=== PATIENT | male | born 1985 | race Caucasian/White ===

== ENCOUNTER 2025-03-25 13:17 | Observation (INO) ==
[2025-03-25 13:58] LABS: Hematocrit (blood only) 43.8 % (42.0-52.0); Hemoglobin 15.5 g/dL (14.0-18.0); Immature Granulocytes # (auto) 0.01 K/uL (0.01-0.20); Immature Granulocytes % (auto) 0.1 %; Mean Corpuscular Hemoglobin 30.9 pg (25.0-34.0); Mean Corpuscular Volume 87.3 fL (80.0-100.0); Platelet Count 181 K/uL (130-400); RDW Standard Deviation 40.0 fL (36.4-46.3); Red Blood Count 5.02 M/uL (4.70-6.10); White Blood Count 6.78 K/ul (4.8-10.8)
--- NOTE | 2025-03-25 14:01 | Emergency Department Note ---
Impression & Plan Midsternal chest pain, Elevated troponin ED Provider Note CHIEF COMPLAINT: Episode of chest pain x 1 week HISTORY OF PRESENT ILLNESS: Patient is a 40-year-old male who presents to the emergency department accompanied by his significant other for evaluation of chest pain. Is been having episodes for about a week. He states he gets a sharp, stabbing midsternal chest pain with associated sweats and dizziness. They last between 3-5 minutes, then go away. He typically has to sit down, tries to take deep breaths, and the symptoms eventually pass. Occasionally the pain will radiate towards the left shoulder and arm, and he sometimes will get some numbness and tingling in the left arm. He reports increasing frequency and episodes in the last 24 hours. He had an episode happened at work after he had just gone up and down several flights of stairs. He had episodes that woke him up from sleep overnight, the last episode he had he was just standing in his kitchen doing nothing around 11:00 today, which was 3 hours ago. He also notes today that his smart watch woke him from sleep at 1030, because "his heart rate was in the 40s for greater than 10 minutes." T REVIEW OF SYSTEMS: Review of systems as per HPI. All other systems reviewed were negative. 10 systems reviewed. PMH: External medical records are reviewed and summarized as above/below. See Problem List. The patient is healthy; there is no significant medical or surgical history. SOCIAL HISTORY: Patient lives at home with family. 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 Smokes 1/2 pack of cigarettes per day. Denies alcohol. PHYSICAL EXAM: Vital Signs: Reviewed Nurse's notes. CONSTITUTIONAL: Well-appearing 40-year-old male who is awake and alert and in no acute distress. EYES: Pupils equal, round, reactive to light and accommodation. EOMs intact without nystagmus. Sclera are anicteric. ENT: Tympanic membranes intact, with normal landmarks. External canals are clear. Oral and nasopharynx are clear. Mucous membranes are moist, no lesions, tongue and gums appear normal. CARDIOVASCULAR: Regular rate and rhythm, with normal S1 and S2, no murmur or gallop or rub is heard. No carotid bruits auscultated. No JVD. Peripheral pulses easy to palpable. RESPIRATORY: Breath sounds equal and clear to auscultation without wheezes, rales, or rhonchi heard. Full and equal chest expansion without accessory muscle use or retractions. GI: Bowel sounds are present. Abdomen is soft, nontender, nondistended. No organomegaly. No pulsatile masses. No guarding or rebound. MUSCULOSKELETAL: Full range of motion of extremities x 4 with good strength. No cyanosis, edema, joint tenderness or swelling. No deformity. INTEGUMENTARY: No lesions or rash, normal skin turgor. EMERGENCY DEPARTMENT COURSE: The patient was seen and assessed as above. External medical records are reviewed. He presents to the emergency department for evaluation of midsternal chest pain. He has been having episodes for the last week, but more frequently in the last 24 hours. His last episode was at 11:00 today, about 2 hours prior to arrival in the emergency department. EKG, chest x-ray and laboratory studies were collected. Diagnostics, as interpreted by me: Laboratory studies: White count normal 6700, H&H 15 and 43, platelet count 181,000. Renal functions are normal. No electrolyte imbalance, no transaminitis. Initial troponin 13.3, repeat 2-hour troponin elevated at 24.1. Lab had inadvertently drawn a troponin 1 hour after the first, this was 18.8. ECG: Sinus bradycardia, 54 bpm, no acute ischemic changes. No old EKGs for comparison. Cardiac monitoring: An order was placed for continuous cardiac monitoring. The monitor shows a NSR at a rate of 70 per my interpretation. Imaging studies: Chest x-ray clear, no effusion or pneumothorax. No infiltrate. Case reviewed with attending physician, Dr. Paz. All laboratory and diagnostic imaging studies were reviewed with the patient and his significant other. He does endorse that he has had additional episodes of chest pain while in the ED. Given the elevated troponin, I do think that further inpatient care is warranted. He was given aspirin PO. Patient was reviewed with the ED case hardener, and consultation placed with the [facility] hospitalist service. Patient discussed with Dr. Scanlon. Chronic conditions affecting care: Tobacco abuse, family history of heart disease Differential diagnosis: acute myocardial infarction, acute coronary syndrome, myocarditis, pericarditis, pulmonary embolism, pneumonia, pneumothorax, cardiomyopathy, congestive heart failure, anemia , COPD/asthma exacerbation, musculoskeletal, anxiety, costochondritis,. Past Med/Surg History Problem List (Updated 03/25/25 @ 16:55 by Salas Kumar) Elevated troponin (Acute) Midsternal chest pain (Acute) Medical History Chronic left hip pain Low testosterone Surgical History No significant past surgical history Family History Mother Myocardial infarction Father Hip dysplasia Hypertension Alzheimer disease Uncle Diabetes Grandfather (Paternal) Alzheimer disease Denies family history of Ovarian cancer Prostate cancer Breast cancer Colorectal cancer Social History Smoking Status: Current every day smoker Tobacco Type: Cigarettes Age Started Using Tobacco: 18; packs per day: 0.5; Do You Dip or Chew Tobacco: No; Hx Alcohol Use: No Hx Substance Use: No Preferred Language: Frisian marital status: Life Partner Current Living Situation: Significant Other current occupational status: employed 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 Safe at Home: Yes Childhood Exposure to Second-Hand Smoke: Yes Dental Care, Regularly: Yes Physical Activity Frequency: 3-4 Times per Week Seatbelt Use: always Sunscreen Use: Yes Allergies Allergies Allergy/AdvReac Type Severity Reaction Status Date / Time No Known Allergies Allergy Verified 06/17/24 14:45 Home Meds Home Medications Medication Instructions Recorded Confirmed multivitamin 1 tab PO DAILY 05/27/24 06/17/24 Previous Rx's Medication Instructions Recorded prednisone 10 mg tablet See Rx Instructions PO DAILY #30 06/17/24 tabs Results & Data (ED) Vital Signs Vital Signs - 24 hr 03/25/25 13:21 03/25/25 13:34 03/25/25 15:14 Temperature 36.8 C Temperature Source Oral Pulse Rate 70 60 Pulse Rate from SpO2 Sensor Respiratory Rate 18 Respiratory Effort / Characteristics Non-Labored Spontaneous Respiratory Depth Normal Respiratory Pattern Regular Blood Pressure 153/90 H 140/73 Blood Pressure Mean 111 92 Blood Pressure Position Sitting Pulse Oximetry 98 Oxygen Delivery Method Room Air Sepsis Recent Fever Within 48 Hours No Sepsis New/Unexplained Change in Mental Status No Sepsis Action Taken by Nursing No Action Required 03/25/25 15:14 03/25/25 15:14 03/25/25 15:14 Temperature Temperature Source Pulse Rate Pulse Rate from SpO2 Sensor Respiratory Rate Respiratory Effort / Characteristics Respiratory Depth Respiratory Pattern Blood Pressure 140/73 140/73 140/73 Blood Pressure Mean 92 92 92 Blood Pressure Position Pulse Oximetry Oxygen Delivery Method Sepsis Recent Fever Within 48 Hours Sepsis New/Unexplained Change in Mental Status Sepsis Action Taken by Nursing 03/25/25 15:21 Temperature Temperature Source Pulse Rate 99 H Pulse Rate from SpO2 Sensor 85 Respiratory Rate 13 Respiratory Effort / Characteristics Respiratory Depth Respiratory Pattern Blood Pressure 140/73 Blood Pressure Mean 95 Blood Pressure Position Pulse Oximetry 99 Oxygen Delivery Method Sepsis Recent Fever Within 48 Hours Sepsis New/Unexplained Change in Mental Status Sepsis Action Taken by [facility] Medications Current Medication List: was personally reviewed by me Laboratory Data Attestation: I reviewed the patient's lab results. 03/25/25 13:40 03/25/25 13:40 Lab Results 03/25/25 03/25/25 03/25/25 Range/Units 13:40 14:43 15:45 WBC 6.78 (4.8-10.8) K/ul RBC 5.02 (4.70-6.10) M/uL Hgb 15.5 (14.0-18.0) g/dL Hct 43.8 (42.0-52.0) % MCV 87.3 (80.0-100.0) fL MCH 30.9 (25.0-34.0) pg MCHC 35.4 (32.0-36.0) g/dL RDW Std Deviation 40.0 (36.4-46.3) fL RDW Coeff of Beth 12.7 (11.5-14.5) % Plt Count 181 (130-400) K/uL MPV 9.6 (9.4-12.4) fL Immature Gran % (Auto) 0.1 % Neut % (Auto) 43.5 % Lymph % (Auto) 43.8 % [place] % (Auto) 7.4 % Eos % (Auto) 4.3 % Baso % (Auto) 0.9 % Neut # (Auto) 2.95 (1.40-6.50) K/uL Lymph # (Auto) 2.97 (1.20-3.40) K/uL [place] # (Auto) 0.50 (0.11-0.59) K/uL Eos # (Auto) 0.29 (0.00-0.50) K/uL Baso # (Auto) 0.06 (0.00-0.20) K/uL Immature Gran # (Auto) 0.01 (0.01-0.20) K/uL Sodium 138 (136-145) mmol/L Potassium 4.0 (3.5-5.1) mmol/L Chloride 103 (98-107) mmol/L Carbon Dioxide 28 (21-32) mmol/L Anion Gap 7 (3-11) BUN 18 (6-23) mg/dl Creatinine 1.24 (0.6-1.4) mg/dl Est Cr Clr Drug Dosing 104.0 ml/min eGFR 76.32 BUN/Creatinine Ratio 14.5 (10-20) Glucose 134 H (70-99(Fasting)) mg/dl Calcium 8.9 (8.6-10.3) mg/dl Total Bilirubin 0.4 (0.2-1.0) mg/dl AST 20 (13-39) U/L ALT 19 (7-52) U/L Alkaline Phosphatase 65 (34-104) U/L Troponin I High Sens 13.3 18.8 D 24.1 H (0-20) pg/ml Total Protein 6.9 (6.0-8.3) gm/dl Albumin 4.3 (3.4-5.0) gm/dl Globulin 2.6 (2.5-4.0) gm/dl Albumin/Globulin Ratio 1.7 (0.9-2) Administered Medications Discontinued Medications Aspirin (Aspirin 81 Mg Chew) 324 mg PO NOW STA Stop: 03/25/25 16:42 Last Admin: 03/25/25 16:52 Dose: 324 mg Documented By: [facility] Imaging Data Attestation: I personally reviewed and interpreted this imaging study as follows: Radiologist's Impression: Chest X-Ray 03/25/25 13:34 Clinical History: Chest pain Technique: A frontal view of the chest was obtained Findings: There are no confluent pulmonary infiltrates. The heart size is within normal limits. No pleural effusion or pneumothorax is seen. There is no definite pulmonary nodule. No fracture is noted. No foreign body is seen Impression: No active disease Electronically signed by Olayinka Pratt 03-25-2025 2:59 PM Discharge Plan Visit Data Chief Complaint: Cardiac Assessment Stated Complaint: CHEST PAIN, DIZZINESS, SWEATING ED Provider: Foreign Paz ED Midlevel Provider: Salas Kumar Discharge Problem: Midsternal chest pain, Elevated troponin Patient Disposition: Being Evaluated by Hospitalist Condition: Fair Forms Stand Alone Forms: My [facility] Prescriptions Prescriptions: No Action prednisone 10 mg tablet See Rx Instructions PO DAILY Qty: 30 0RF Rx Instructions: Take 4 tabs daily x 3 days, then take 3 tabs daily x 3 days, then take 2 tabs daily x 3 days, then take 1 tab daily x 3 days multivitamin Tablet 1 tab PO DAILY Referrals Referrals: Gladys Matthews CRNP [Primary Care Provider] -
[2025-03-25 14:20] LABS: Alanine Aminotransferase 19.0 U/L (7-52); Albumin Globulin Ratio 1.7 (0.9-2); Albumin Level 4.3 gm/dl (3.4-5.0); Alkaline Phosphatase 65.0 U/L (34-104); Anion Gap 7.0 (3-11); Bilirubin,Total 0.4 mg/dl (0.2-1.0); Blood Urea Nitrogen 18.0 mg/dl (6-23); Calcium 8.9 mg/dl (8.6-10.3); Carbon Dioxide 28.0 mmol/L (21-32); Chloride 103.0 mmol/L (98-107); Creatinine Clr Calc Pharmacy 104.0 ml/min; Globulin 2.6 gm/dl (2.5-4.0); Glucose 134.0 mg/dl (70-99(Fasting)); Potassium 4.0 mmol/L (3.5-5.1); Sodium 138.0 mmol/L (136-145); Total Protein 6.9 gm/dl (6.0-8.3)
--- NOTE | 2025-03-25 15:04 | XRay Report ---
Clinical History: Chest pain Technique: A frontal view of the chest was obtained Findings: There are no confluent pulmonary infiltrates. The heart size is within normal limits. No pleural effusion or pneumothorax is seen. There is no definite pulmonary nodule. No fracture is noted. No foreign body is seen Impression: No active disease Electronically signed by Olayinka Pratt 03-25-2025 2:59 PM
[2025-03-25] MEDS: ASPIRIN 81 MG CHEW PO STA (16:52)
[2025-03-25] MEDS: MAGNESIUM SULFATE / D5W 1 GM/100 ML BAG IV SCH ×2 (17:15→17:53)
[2025-03-25] MEDS ORDERED: POLYETHYLENE (MIRALAX) 17 GM PACK PO PRN (17:46)
[2025-03-25] MEDS ORDERED: MoRPHine SULFATE 2 MG/ML CARP IV PRN (17:46)
[2025-03-25] MEDS ORDERED: ACETAMINOPHEN 325 MG TAB PO PRN (17:46)
[2025-03-25] MEDS ORDERED: NITROGLYCERIN SL 0.4 MG/TAB TAB SL PRN (17:46)
[2025-03-25] MEDS ORDERED: ONDANSETRON INJ 2 MG/ML 2 ML VIAL IV PRN (17:46)
[2025-03-25] MEDS ORDERED: MELATONIN 3 MG TAB PO PRN (17:51)
--- NOTE | 2025-03-25 18:06 | History & Physical Report ---
Date of Service March 25, 2025 Assessment & Plan (1) Midsternal chest pain: (2) Elevated troponin: (3) Bradycardia with 41-50 beats per minute: (4) Cigarette smoker one half pack a day or less: Plan Kendrick is a 40yo male with no current medical history but had anxiety with panic attacks and morbid obesity earlier in life, came to the ED for concern about increasing frequency and duration of sharp midsternal chest pain, being admitted for cardiac assessment and workup of undifferentiated chest pain. Episodes include sharp 10/10 non-radiating mid-lower sternal pain, non- exertional, and with no apparent provocation, becoming more frequent and lasting longer since they first started about a month ago. Typical symptoms include midsternal location w/ dizziness and diaphoresis, however atypical symptoms include sharp pain rather than pressure/tightness that it is unrelated to activity. Considering unstable angina as most likely dx. Requires admission for continuous cardiac monitoring and and medical stabilization. #midsternal chest pain #?unstable angina vs atypical chest pain No hx CAD or AL, nor prior chest pain like this before the episodes first started about a month ago; maternal hx of CAD at 52 with AL cxr negative for acute process, no reproducible tenderness to palpation of entire chest wall initial EKG showing sinus bradycardia to 54; second EKG in ED showing sinus rhythm at 75bmp with frequent PVCs and PACs - did not come to ED with chest pain, however in ED pt did have a run of what appeared to be VTach with concomitant anxiety and some dizziness Given aspirin 324mg; shortly after run of VT pt was given 1g mag sulfate x2 Trop elevated only in 20s but slight uptrend obtaining q6h troponin, trend to peak starting anticoagulation with heparin drip for suspected unstable angina nitroglycerin SL and ointment ordered, prn for chest pain morphine 2mg IV additionally prn for pain continue aspirin 81mg daily Protonix 40mg daily ordered for possibility of acid reflux as a cause of non- cardiac chest pain Cardiology consulted, appreciate recs and interventions Lipid panel within normal limits, LDL 75 in Apr 2024; consider obtaining new lipid panel but unlikely to have worsened to a significant degree in 10-11mos based on reportedly rather healthy diet with daily exercise on the job #frequent PVCs - pt does endorse typically 2 monster energy drink cans per day; denies other significant caffeine - also notes his sleep is rather poor as 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 His partner heard a thump, saw pt on the bathroom floor as he had fallen. Notes he was disoriented for 1-2min before being fully with it again, pt didn't know he had fallen or was about to fall. - would benefit from EEG outpatient if unable to obtain while in hospital #cigarette smoking, 15-20pky hx currently 1/2 pack per day, previously a full pack. Started at [age] further engage willingness to cut back or quit, discuss patches vs gum vs other methods chronic stable: #opioid use disorder, remission continue subutex 8mg SL daily VTE ppx: heparin drip dispo: pcu tele History of Present Illness Chief Complaint: chest pain increasing freq and duration Primary Care Provider: IRVING Earl Kendrick is a 40yo male with no current medical history but had anxiety with panic attacks and morbid obesity earlier in life, concerned about increasing frequency and duration of midsternal chest pain. States that since just 1 month ago, with no obvious triggers, he started having sharp up to 10/10 pain in the center of his chest, without radiation, with no apparent provocation. Initially they lasted 30-40 seconds and occurred 1-2x daily, now they are occurring 4-5x daily, more frequently at night, including waking him up from sleep. States he gets dizzy and sweaty, occasionally pins and needles sensation of left hand. Additionally notes his smart watch has alerted him about heart rate in the 40s overnight on a few occasions. Denies any obvious exertional, positional, or dietary triggers to the pain. Denies any personal history of CAD or AL, nor prior chest pain like this before the episodes first started about a month ago. Also mentions one instance a few months ago he got up to urinate in the middle of the night, and before he knew it he was on the ground. His partner heard a thump, saw pt on the bathroom floor as he had fallen. Notes he was disoriented for 1-2min before being fully with it again. - pt notes his sister has hx of epilepsy since childhood, but denies any personal hx of seizures in his life. 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, typically walks upwards of 5-10mi per daily on the job FamHx: mom had CAD at 52yo; sister hx epilepsy ED course: 1g mag sulfate x2 IV, aspirin 324mg PO Allergies Allergy/AdvReac Type Severity Reaction Status Date / Time No Known Allergies Allergy Verified 06/17/24 14:45 Home Medications Medication Instructions Recorded Confirmed Type buprenorphine HCl 8 mg sublingual 8 mg sublingual DAILY 03/25/25 03/25/25 History tablet Past Med/Surg History Problem List (Updated 03/25/25 @ 20:12 by Yury Duong DO) Cigarette smoker one half pack a day or less Bradycardia with 41-50 beats per minute Elevated troponin (Acute) Midsternal chest pain (Acute) Medical History Chronic left hip pain Low testosterone Surgical History No significant past surgical history Family History Mother Myocardial infarction Father Hip dysplasia Hypertension Alzheimer disease Uncle Diabetes Grandfather (Paternal) Alzheimer disease Denies family history of Ovarian cancer Prostate cancer Breast cancer Colorectal cancer Social History Smoking Status: Current every day smoker Tobacco Type: Cigarettes Age Started Using Tobacco: 18; packs per day: 0.5; Do You Dip or Chew Tobacco: No; Hx Alcohol Use: No Hx Substance Use: No Preferred Language: American marital status: Life Partner Current Living Situation: Significant Other current occupational status: employed 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 Feels Safe at Home: Yes Childhood Exposure to Second-Hand Smoke: Yes Dental Care, Regularly: Yes Physical Activity Frequency: 3-4 Times per Week Seatbelt Use: always Sunscreen Use: Yes Physical Exam Physical Exam: Gen: appearing in mild distress, A&Ox3 CV: RRR, no m/r/g Resp: clear to auscultation b/l, no w/r/R GI/Abd: +BS, no organomegaly, abdomen nontender to palpation MSK: anterior and posterior chest wall nontender to palpation, no ecchymosis or gross deformities Neuro: 5/5 strength and symmetric movement of b/l UE and LE, no facial droop, speech intact, no focal deficits Skin: R lateral chest wall <1cm erythematous lesion with dark central scabbing (known tick bite, removed within the past week) Results & Data Results & Data Vital Signs (Past 12 Hours) Vital Signs Temp Pulse Resp BP Pulse Ox O2 Del Method 03/25/25 15:21 99 H 13 140/73 99 03/25/25 15:14 140/73 03/25/25 15:14 140/73 03/25/25 15:14 140/73 03/25/25 15:14 140/73 03/25/25 13:34 60 03/25/25 13:21 36.8 C 70 18 153/90 H 98 Room Air Code Status & VTE Plan VTE Prophylaxis Plan VTE Prophylaxis will be ordered: Yes Reason for no VTE drug order: Treatment not indicated Resident Activity Tracking Resident Involvement: Resident Care Provided Care Provided: Adult Hospital Medicine
[2025-03-25] MEDS: NITROGLYCERIN 2% OINTMENT 30GM TUBE EXT SCH (18:47)
[2025-03-25] MEDS: HEPARIN 25000 UNIT/500 ML D5W 25,000 UNITS/500 ML BAG IV SCH (21:26)
[2025-03-25] MEDS: Heparin IV Adult Wt-Based Standard *NO* INITIAL Bolus Protocol IV STA (21:31)
[2025-03-25 22:03] VITALS: O2SAT 97
[2025-03-25 22:14] LABS: INR 1.0 (0.9-1.1); Partial Thromboplastin Time 27 Seconds (21-31); Prothrombin Time 10.9 Seconds (9.0-12.0)
[2025-03-26 04:02] LABS: Anion Gap 5.0 (3-11); Blood Urea Nitrogen 16.0 mg/dl (6-23); Calcium 8.8 mg/dl (8.6-10.3); Carbon Dioxide 30.0 mmol/L (21-32); Chloride 104.0 mmol/L (98-107); Creatinine Clr Calc Pharmacy 106.3 ml/min; Glucose 111.0 mg/dl (70-99(Fasting)); Magnesium 2.5 mg/dl (1.7-2.4); Potassium 4.6 mmol/L (3.5-5.1); Sodium 139.0 mmol/L (136-145)
[2025-03-26 04:20] LABS: ANTI-Xa, UFH(UnfractionatedHep 0.36 IU/ml (0.3-0.7)
[2025-03-26] MEDS: ASPIRIN 81 MG ECTAB PO SCH (08:46)
--- NOTE | 2025-03-26 10:20 | XCELERA ---
[id number]
--- NOTE | 2025-03-26 10:36 | Cardiology Consultation ---
Date of Consultation March 26, 2025 Assessment & Plan (1) Midsternal chest pain: (2) SVT (supraventricular tachycardia): (3) Bradycardia with 41-50 beats per minute: (4) Syncope: Plan 1. Chest pain: Atypical in that this occurs at rest, it is described as sharp and is quite transient and nature. This seems unlikely to be an acute coronary syndrome. I suppose it is possible that this could represent some form of coronary vasospasm, but the association with his SVT in the emergency room makes this the most likely etiology his tachycardia. 2. SVT: While he does have some episodes of a wide-complex tachycardia, this generally occurs after development of a well-documented SVT. There is some aberrancy with the SVT, typical right bundle branch block. He did have reproduction of his typical chest pain symptoms with development of the SVT. No evidence of preexcitation on his baseline EKG. No history of arrhythmia in the past. Curiously, no recordings of high heart rates on his heart rate monitor at home. 3. Wide-complex tachycardia: While we only have a single-lead EKG in the emergency room, there does appear to be some brief episodes of VT, generally in association with SVT. Structurally normal heart. No history of coronary disease. Only does take buprenorphine, QTc on his EKG is normal and this particular formulation is not generally associated with cardiac arrhythmias. 4. PVCs: At times he has a bigeminal rhythm. Most noticeable when he has his usual sinus bradycardia. Overall burden appears normal. Morphology not suggestive of an outflow tract PVC. This likely accounts for some episodes of "bradycardia" 5. Sinus bradycardia: He has a baseline sinus bradycardia. Unclear duration. He states that has been told on many occasions that he has a slow heartbeat. I don't think this is playing a significant role in his current symptoms or symptoms of any kind however it may limit our ability to treat SVT as high-dose beta-blockade may be relatively contraindicated 6. Syncope: Remote history of syncope. Episode concerning for arrhythmia especially in light of his recent findings. My recommendation was to perform exercise testing both to evaluate symptoms, exclude ischemia and monitor for arrhythmia. However, the patient chose to leave the hospital and return for outpatient evaluation. History of Present Illness Reason for Consultation: Chest pain, arrhythmia Requesting Physician: Ghislaine Attending Physician: Rafael Scanlon History of Present Illness The patient is a 40-year-old gentleman without a known history of cardiac disease who presented to the hospital for symptoms of chest discomfort. The patient states that over the past week he has been having paroxysms of chest pain that he described as "sharp" and severe in nature. They occur in the precordium and happen randomly. In fact, the most common situation appears to be at nighttime while he is sleeping. He reports being awoken by the symptoms. He generally gets out of bed, rests or drinks a glass of water and the symptoms resolved. He believes they generally last between 30 seconds and 2 minutes in duration. He is unable to go back to sleep without interruption. He has been having more frequent episodes recently. Some of these episodes happen with activity. Not reliably reproduced by any specific activity. Perhaps some associated dizziness but no presyncope or syncope. Some diaphoresis as well. Patient states that prior to last week he was not having symptoms of this nature at all. He did report 1 episode of syncope which occurred several months ago. He recalls getting up to go to the bathroom and falling on the floor. He did not recall the circumstances leading up to that event or any symptoms associated with the syncope. No injury and no recurrence. He cannot recall having a similar episode in the past. He does have a watch that monitors his heart rate. This has been giving him alarms at nighttime recently that his heart rate is consistently below 40 bpm. This does not appear to happen during the day. He is not gotten these reports prior to the last few weeks. Curiously, no reports of high heart rates. No warnings about atrial fibrillation. Patient states that he is always had a "slow heartbeat". In general he is an active individual. He has a physically demanding job but is able to perform his usual duties without symptom. He specifically denied any chest pain, shortness of breath or dizziness associated with activity. He does have some hip dysplasia in his hip pain is noticeable with activity at times. Yesterday while being evaluated in the emergency room he did have recurrence of his typical chest pain symptoms. This appeared to be associated with a rapid heart rate. He stated that the episode was identical to prior but shorter in duration. Allergies Allergy/AdvReac Type Severity Reaction Status Date / Time No Known Allergies Allergy Verified 03/27/25 09:46 Home Medications Medication Instructions Recorded Confirmed Type buprenorphine HCl 8 mg sublingual 8 mg sublingual DAILY 03/25/25 03/28/25 History tablet Patient History Medical History Chronic left hip pain Low testosterone Surgical History No significant past surgical history Family History Mother Myocardial infarction Father Hip dysplasia Hypertension Alzheimer disease Uncle Diabetes Grandfather (Paternal) Alzheimer disease Denies family history of Ovarian cancer Prostate cancer Breast cancer Colorectal cancer Social History Smoking Status: Former smoker Tobacco Type: Cigarettes Age Started Using Tobacco: 18; Age Quit Using Tobacco: 40; packs per day: 0.5; Hx Alcohol Use: No Hx Substance Use: No Preferred Language: Sammarinese Communication Ability: Effective Psychiatric Secretary Required: No Beliefs That Will Affect Care: None marital status: Life Partner Current Living Situation: Spouse current occupational status: employed 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 Physical Exam Physical Exam: The patient is alert and oriented. Mood and affect appeared normal. He answered all questions appropriately. HEENT: Pupils are equal and reactive to light and accommodation. Extraocular movements are intact. The sclerae are anicteric. Neuro: Cranial nerves intact Lungs: Clear to auscultation bilaterally. He has good air movement without use of accessory muscles. No rales wheezes or rhonchi. Cardiac: Heart demonstrates a regular rate and rhythm. Normal S1 and S2. No murmurs on examination. Pulses: The patient has palpable radial pulses bilaterally that are equal in intensity Extremities: There was no evidence of hypoperfusion. There is no cyanosis or clubbing. There is no edema. Skin: I did not appreciate any rashes on examination today. Results & Data Vital Signs (Past 12 Hours) Vital Signs Temp Pulse Pulse Resp BP Pulse Ox O2 Del Method 03/26/25 07:48 42 L 03/26/25 07:10 36.8 C 53 L 20 133/73 97 Room Air 03/26/25 03:22 36.6 C 52 L 18 129/68 97 Room Air Laboratory Results Abnormal Lab Results 03/25/25 03/25/25 03/25/25 13:40 14:43 15:45 WBC 6.78 RBC 5.02 Hgb 15.5 Hct 43.8 MCV 87.3 MCH 30.9 MCHC 35.4 RDW Std Deviation 40.0 RDW Coeff of Beth 12.7 Plt Count 181 MPV 9.6 Immature Gran % (Auto) 0.1 Neut % (Auto) 43.5 Lymph % (Auto) 43.8 Luce % (Auto) 7.4 Eos % (Auto) 4.3 Baso % (Auto) 0.9 Neut # (Auto) 2.95 Lymph # (Auto) 2.97 Luce # (Auto) 0.50 Eos # (Auto) 0.29 Baso # (Auto) 0.06 Immature Gran # (Auto) 0.01 PT INR APTT PTT Ratio Heparin Anti-Xa, Unfract Sodium 138 Potassium 4.0 Chloride 103 Carbon Dioxide 28 Anion Gap 7 BUN 18 Creatinine 1.24 Est Cr Clr Drug Dosing 104.0 eGFR 76.32 BUN/Creatinine Ratio 14.5 Glucose 134 H Calcium 8.9 Magnesium Total Bilirubin 0.4 AST 20 ALT 19 Alkaline Phosphatase 65 Troponin I High Sens 13.3 18.8 D 24.1 H Total Protein 6.9 Albumin 4.3 Globulin 2.6 Albumin/Globulin Ratio 1.7 03/25/25 03/25/25 03/26/25 20:28 21:23 03:23 WBC RBC Hgb Hct MCV MCH MCHC RDW Std Deviation RDW Coeff of Beth Plt Count MPV Immature Gran % (Auto) Neut % (Auto) Lymph % (Auto) Luce % (Auto) Eos % (Auto) Baso % (Auto) Neut # (Auto) Lymph # (Auto) Luce # (Auto) Eos # (Auto) Baso # (Auto) Immature Gran # (Auto) PT 10.9 INR 1.0 APTT 27 PTT Ratio 1.0 Heparin Anti-Xa, Unfract 0.36 Sodium 139 Potassium 4.6 Chloride 104 Carbon Dioxide 30 Anion Gap 5 BUN 16 Creatinine 1.21 Est Cr Clr Drug Dosing 106.3 eGFR 78.60 BUN/Creatinine Ratio 13.2 Glucose 111 H Calcium 8.8 Magnesium 2.5 H Total Bilirubin AST ALT Alkaline Phosphatase Troponin I High Sens 21.5 H Total Protein Albumin Globulin Albumin/Globulin Ratio Diagnostic Findings Echocardiogram 03/26/2025: Normal LV systolic function with ejection fraction of 60 to 65%. No regional wall abnormalities. No valvular heart disease. Chest x-ray obtained at the time of admission to reveal any acute cardiopulmonary disease. PG Care Time/CCT Total # of Minutes Spent Total Time Spent with Patient: Total time spent is greater than 50% in coordination of care (as documented) at patient's floor/unit and/or counseling patient: Coding Level of Care Code 63031 IN/OBS CONSULT LVL 4,60M Diagnoses Midsternal chest pain R07.89 SVT (supraventricular tachycardia) I47.10 Bradycardia with 41-50 beats per minute R00.1 Syncope R55
[2025-03-26 10:58] VITALS: TEMP 98.1
--- NOTE | 2025-03-26 12:07 | Electrocardiogram Report ---
Test Reason : Blood Pressure : */* mmHG Vent. Rate : 54 BPM Atrial Rate : 54 BPM P-R Int : 168 ms QRS Dur : 94 ms QT Int : 408 ms P-R-T Axes : 58 62 67 degrees QTcB Int : 386 ms Sinus bradycardia Otherwise normal ECG No previous ECGs available Confirmed by Darren Meza ([id number]) on 03/26/2025 12:07:32 PM Referred By: REFERRED SELF Confirmed By: Darren Meza
--- NOTE | 2025-03-26 12:09 | Electrocardiogram Report ---
Test Reason : Blood Pressure : */* mmHG Vent. Rate : 75 BPM Atrial Rate : 67 BPM P-R Int : 150 ms QRS Dur : 92 ms QT Int : 388 ms P-R-T Axes : 37 43 60 degrees QTcB Int : 433 ms Sinus rhythm with frequent Premature ventricular complexes and Premature atrial complexes Nonspecific ST abnormality Abnormal ECG When compared with ECG of 25-Mar-2025 13:29, (unconfirmed) Premature ventricular complexes are now Present Premature atrial complexes are now Present Confirmed by Darren Meza ([id number]) on 03/26/2025 12:09:07 PM Referred By: REFERRED SELF Confirmed By: Darren Meza
[2025-03-26 15:09] VITALS: BP 147/80; RESP 19
[2025-03-26 15:31] VITALS: PULSE 51
== END 2025-03-26 15:30 | disposition left against medical advice (07) ==
LOC: 4W 13:17 → ED 13:17 → 4W 20:50

== ENCOUNTER 2025-03-28 10:42 | Inpatient (IN) ==
--- NOTE | 2025-03-28 11:00 | Emergency Department Note ---
ED Provider Note History of Present Illness Chief Complaint: Chest Pain Stated Complaint: CHEST PAIN, DIZZY Time Seen by Provider: 03/28/25 10:50 Source: patient Mode of arrival: ambulatory Limitations: no limitations Patient is a 40-year-old male who presents to the emergency department with complaints of chest pain. Patient states that he has been having intermittent chest pain that last approximately 1 to 4 minutes. Patient notes that this has been ongoing for several days and he was recently admitted to the hospital on Thursday, leaving the hospital AMA on Thursday. Patient states that he is having worsening episodes of chest pain today and noting that he is dizzy and short of breath. Home Medications Medication Instructions Recorded Confirmed Type buprenorphine HCl 8 mg sublingual 8 mg sublingual DAILY 03/25/25 03/28/25 History tablet aspirin 81 mg tablet,delayed 81 mg PO QAM 30 days #30 tabs 03/30/25 Rx release atorvastatin 40 mg tablet 80 mg (2 x 40 mg) PO QAM 30 days 03/30/25 Rx #60 tabs prasugrel HCl 10 mg tablet 10 mg PO QAM 30 days #30 tabs 03/30/25 Rx valsartan 80 mg tablet (Diovan) 80 mg PO QAM 30 days #30 tabs 03/30/25 Rx Allergies Allergy/AdvReac Type Severity Reaction Status Date / Time No Known Allergies Allergy Verified 03/27/25 09:46 Past Med/Surg History Problem List (Updated 03/31/25 @ 14:42 by IRVING Epps) CAD (coronary artery disease) Chest pain (Acute) NSTEMI (non-ST elevated myocardial infarction) (Acute) Syncope SVT (supraventricular tachycardia) Cigarette smoker one half pack a day or less Bradycardia with 41-50 beats per minute Elevated troponin (Acute) Midsternal chest pain (Acute) Medical History Chronic left hip pain Low testosterone Surgical History No significant past surgical history Family History Mother Myocardial infarction Father Hip dysplasia Hypertension Alzheimer disease Uncle Diabetes Grandfather (Paternal) Alzheimer disease Denies family history of Ovarian cancer Prostate cancer Breast cancer Colorectal cancer Social History Smoking Status: Former smoker Tobacco Type: Cigarettes Age Started Using Tobacco: 18; Age Quit Using Tobacco: 40; packs per day: 0.5; Hx Alcohol Use: No Hx Substance Use: No Preferred Language: [place] Communication Ability: Effective 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: No Beliefs That Will Affect Care: None marital status: Life Partner Current Living Situation: Spouse current occupational status: employed 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 Feels Safe at Home: Yes Childhood Exposure to Second-Hand Smoke: Yes Dental Care, Regularly: Yes Physical Activity Frequency: 3-4 Times per Week Seatbelt Use: always Sunscreen Use: Yes Physical Exam Vital Signs Vital Signs - 24 hr 03/28/25 10:46 Temperature 36.8 C Temperature Source Temporal Artery Scan Pulse Rate 73 Respiratory Rate 16 Respiratory Effort / Characteristics Non-Labored Spontaneous Respiratory Depth Normal Respiratory Pattern Regular Blood Pressure 180/103 H Blood Pressure Mean 128 Pulse Oximetry 98 Oxygen Delivery Method Room Air Sepsis Recent Fever Within 48 Hours No Sepsis New/Unexplained Change in Mental Status No Sepsis Action Taken by Nursing No Action Required VITAL SIGNS - Vital signs and nursing notes were reviewed. GENERAL -40-year-old male appearing their stated age, who is in no acute distress. Communicates well with provider and answers questions appropriately. Patient does appear to be in some discomfort though. HEAD - Normocephalic, Atraumatic. No Stephens's Sign or Raccoon's Eyes. EYES - PERRL with EOMI bilaterally. Sclera anicteric. Conjunctiva pink and moist with no injection noted. EARS - No deformities of external structures noted on gross examination bilaterally. NECK - Neck with FROM. Supple to palpation. No lymphadenopathy noted. LUNGS - Chest wall symmetric without accessory muscle use, intercostals retractions, or central cyanosis. Normal vesicular breath sounds CTA B/L. No wheezes, rales, or rhonchi appreciated. CARDIAC - RRR with S1/S2. No murmur, rubs, or gallops appreciated. EXTREMITIES -mild edema present in the tops of his feet bilaterally. +5/5 strength noted in UE/LE bilaterally. NEUROLOGIC -Sensory intact to light touch throughout. PSYCH - A&Ox3 and cooperates fully with examiner. Pt is very pleasant and interacts well with examiner Course Administered Medications Discontinued Medications Aspirin (Aspirin Chew 324 Mg) 324 mg PO NOW STA Stop: 03/28/25 12:24 Last Admin: 03/28/25 12:40 Dose: 324 mg Documented By: ABAD Aspirin (Aspirin 81 Mg Ectab) [facility] [place]: 04/28/25 08:59 Last Admin: 03/30/25 09:30 Dose: 81 mg Documented By: Admin: 03/29/25 08:51 Dose: 81 mg Documented By: REJI Atorvastatin Calcium (Atorvastatin 40 Mg Tab) 40 mg PO [facility] Stop: 04/28/25 09:14 Last Admin: 03/29/25 13:28 Dose: 40 mg Documented By: REJI Atorvastatin Calcium (Atorvastatin 40 Mg Tab) 80 mg PO [facility] Stop: 04/29/25 08:59 Last Admin: 03/30/25 09:30 Dose: 80 mg Documented By: REJI Buprenorphine HCl (Buprenorphine Hcl 8 Mg Subl) 8 mg SL DAILY [facility] Stop: 04/28/25 08:59 Last Admin: 03/29/25 08:57 Dose: 8 mg Documented By: REJI Diphenhydramine HCl (Diphenhydramine 50 Mg/Ml Vial) Confirm Administered Dose 50 mg .ROUTE .STK-MED ONE Stop: 03/29/25 11:48 Last Admin: 03/29/25 12:40 Dose: 50 mg Documented By: PIA Fentanyl Citrate (Fentanyl Citrate Pf 100 Mcg/2 Ml Vial) Confirm Administered Dose 100 mcg .ROUTE .STK-MED ONE Stop: 03/29/25 10:41 Last Admin: 03/29/25 12:37 Dose: 100 mcg Documented By: PIA Fentanyl Citrate (Fentanyl Citrate Pf 100 Mcg/2 Ml Vial) Confirm Administered Dose 100 mcg .ROUTE .STK-MED ONE Stop: 03/29/25 11:44 Last Admin: 03/29/25 12:39 Dose: 100 mcg Documented By: PIA Fentanyl Citrate (Fentanyl Citrate Pf 100 Mcg/2 Ml Vial) Confirm Administered Dose 100 mcg .ROUTE .STK-MED ONE Stop: 03/29/25 12:12 Last Increment: 03/29/25 12:40 Dose: 25 mcg Documented By: PIA Heparin Sodium (Porcine) (Heparin Sod (Porcine) 1000 Unit/Ml) 1 units IV NOW ONE Stop: 03/28/25 12:40 Last Admin: 03/28/25 12:44 Dose: 5,000 units Documented By: ABAD Co-signed By: AISHWARYA Heparin Sodium (Porcine) (Heparin (Porcine) 1000 Unit/Ml 10 Ml (Human Resources Department Supervisor Use Only)) Confirm Administered Dose 10,000 units .ROUTE .STK-MED ONE Stop: 03/29/25 10:41 Last Admin: 03/29/25 12:38 Dose: 10,000 units Documented By: PIA Heparin Sodium (Porcine) (Heparin (Porcine) 1000 Unit/Ml 10 Ml (Human Resources Department Supervisor Use Only)) Confirm Administered Dose 10,000 units .ROUTE .STK-MED ONE Stop: 03/29/25 12:34 Last Admin: 03/29/25 12:40 Dose: 2,000 units Documented By: PIA Heparin Sodium/Dextrose (Heparin Iv Adult Wt-Based Standard W/ Initial Bolus Protocol) 1 each IV NOW STA; Protocol Stop: 03/28/25 12:24 Last Admin: 03/28/25 12:44 Dose: Not Given Documented By: ABAD Heparin Sodium/Sodium Chloride (Heparin In Nss Infusion 1000 Unit/500 Ml (2 U/Ml) Bag) Confirm Administered Dose 3,000 units IV .STK-MED ONE Stop: 03/29/25 10:41 Last Admin: 03/29/25 12:39 Dose: 3,000 units Documented By: PIA Heparin Sodium/Dextrose (Heparin 95163 Unit/500 Ml D5w) 25,000 units in 500 mls @ 33 mls/hr IV .[id number] [facility]; Protocol Stop: 04/27/25 12:44 Last Titration: 03/29/25 14:57 Dose: Infused Documented By: REJI Co-signed By: OLU Titration: 03/29/25 09:30 Dose: 0 units/hr, 0 mls/hr Documented By: REJI Co-signed By: OLU Titration: 03/29/25 07:13 Dose: 1,650 units/hr, 33 mls/hr Documented By: MARQUITA Co-signed By: REJI Admin: 03/29/25 04:15 Dose: 1,650 units/hr, 33 mls/hr Documented By: MARQUITA Co-signed By: ZORAN Titration: 03/29/25 03:53 Dose: Infused Documented By: MARQUITA Co-signed By: ZORAN Admin: 03/28/25 12:43 Dose: 1,650 units/hr, 33 mls/hr Documented By: FG Co-signed By: AISHWARYA Magnesium Sulfate/Dextrose (Magnesium Sulfate / D5w) 1 gm in 100 mls @ 50 mls/hr IV Q2H [facility] Stop: 03/28/25 23:59 Last Infusion: 03/29/25 01:31 Dose: Infused Documented By: Admin: 03/28/25 23:43 Dose: 50 mls/hr Documented By: Infusion: 03/28/25 23:43 Dose: Infused Documented By: Admin: 03/28/25 21:18 Dose: 50 mls/hr Documented By: MARQUITA Ioversol (Optiray 320 125ml) 120 ml IV ONCE ONE Stop: 03/28/25 11:56 Last Admin: 03/28/25 11:55 Dose: 120 ml Documented By: LEYLA Midazolam HCl (Midazolam Hcl 1 Mg/Ml 2ml Vial) Confirm Administered Dose 2 mg .ROUTE .STK-MED ONE Stop: 03/29/25 10:41 Last Admin: 03/29/25 12:39 Dose: 2 mg Documented By: PIA Midazolam HCl (Midazolam Hcl 1 Mg/Ml 2ml Vial) Confirm Administered Dose 2 mg .ROUTE .STK-MED ONE Stop: 03/29/25 11:33 Last Admin: 03/29/25 12:39 Dose: 2 mg Documented By: PIA Midazolam HCl (Midazolam Hcl 1 Mg/Ml 2ml Vial) Confirm Administered Dose 2 mg .ROUTE .STK-MED ONE Stop: 03/29/25 11:45 Last Admin: 03/29/25 12:39 Dose: 2 mg Documented By: PIA Nicardipine HCl (Nicardipine 2,000 Mcg/20 Ml Syr) Confirm Administered Dose 2,000 mcg .ROUTE .STK-MED ONE Stop: 03/29/25 10:43 Last Admin: 03/29/25 12:39 Dose: 2,000 mcg Documented By: PIA Nitroglycerin (Nitroglycerin 2% Ointment 30gm Tube) 0.5 inch EXT NOW ONE Stop: 03/28/25 13:34 Last Admin: 03/28/25 13:56 Dose: 0.5 inch Documented By: [facility] Nitroglycerin (Nitroglycerin Sl 0.4 Mg/Tab Tab) 0.4 mg SL Q5M PRN PRN Reason: Chest Pain Stop: 04/27/25 14:05 Last Admin: 03/29/25 08:55 Dose: 0.4 mg Documented By: Admin: 03/29/25 08:49 Dose: 0.4 mg Documented By: Admin: 03/29/25 08:44 Dose: 0.4 mg Documented By: Admin: 03/29/25 02:02 Dose: 0.4 mg Documented By: Admin: 03/29/25 01:52 Dose: 0.4 mg Documented By: MARQUITA Nitroglycerin/Dextrose (Nitroglycerin/D5w 100mcg/Ml 20ml Syr) Confirm Administered Dose 2,000 mcg .ROUTE .STK-MED ONE Stop: 03/29/25 10:41 Last Admin: 03/29/25 12:39 Dose: 2,000 mcg Documented By: PIA Prasugrel (Prasugrel Tab 10 Mg Tab) Confirm Administered Dose 60 mg PO .STK-MED ONE Stop: 03/29/25 12:38 Last Admin: 03/29/25 12:41 Dose: 60 mg Documented By: PIA Prasugrel (Prasugrel Tab 10 Mg Tab) 10 mg PO [facility] Stop: 04/29/25 08:59 Last Admin: 03/30/25 09:29 Dose: 10 mg Documented By: REJI Valsartan (Valsartan 80 Mg Tab) 80 mg PO [facility] Stop: 04/29/25 08:59 Last Admin: 03/30/25 09:29 Dose: 80 mg Documented By: REJI Medical Decision Making Differential Diagnosis Differential diagnosis includes acute coronary syndrome, pulmonary embolism, pneumothorax, pericarditis, myocarditis, endocarditis, anxiety, musculoskeletal pain, GERD, costochondritis, pneumonia, among others. Medical Records Attestation: I reviewed the patient's medical records. Home Medications was personally reviewed by vt Laboratory Data Attestation: I reviewed the patient's lab results. 03/28/25 11:00 03/28/25 11:00 Lab Results 03/28/25 03/28/25 03/28/25 Range/Units 11:00 11:05 12:38 WBC 7.61 (4.8-10.8) K/ul RBC 5.18 (4.70-6.10) M/uL Hgb 16.3 (14.0-18.0) g/dL Hct 44.6 (42.0-52.0) % MCV 86.1 (80.0-100.0) fL MCH 31.5 (25.0-34.0) pg MCHC 36.5 H (32.0-36.0) g/dL RDW Std Deviation 38.5 (36.4-46.3) fL RDW Coeff of Beth 12.2 (11.5-14.5) % Plt Count 188 (130-400) K/uL MPV 9.7 (9.4-12.4) fL Immature Gran % (Auto) 0.1 % Neut % (Auto) 59.3 % Lymph % (Auto) 31.7 % [place] % (Auto) 7.1 % Eos % (Auto) 1.1 % Baso % (Auto) 0.7 % Neut # (Auto) 4.52 (1.40-6.50) K/uL Lymph # (Auto) 2.41 (1.20-3.40) K/uL [place] # (Auto) 0.54 (0.11-0.59) K/uL Eos # (Auto) 0.08 (0.00-0.50) K/uL Baso # (Auto) 0.05 (0.00-0.20) K/uL Immature Gran # (Auto) 0.01 (0.01-0.20) K/uL PT 11.0 (9.0-12.0) Seconds INR 1.0 (0.9-1.1) Sodium 138 (136-145) mmol/L Potassium 3.9 (3.5-5.1) mmol/L Chloride 104 (98-107) mmol/L Carbon Dioxide 25 (21-32) mmol/L Anion Gap 9 (3-11) BUN 20 (6-23) mg/dl Creatinine 1.20 (0.6-1.4) mg/dl Est Cr Clr Drug Dosing 107.0 ml/min eGFR 79.38 BUN/Creatinine Ratio 16.7 (10-20) Glucose 115 H (70-99(Fasting)) mg/dl Calcium 9.4 (8.6-10.3) mg/dl Magnesium 1.9 (1.7-2.4) mg/dl Total Bilirubin 0.6 (0.2-1.0) mg/dl AST 25 (13-39) U/L ALT 24 (7-52) U/L Alkaline Phosphatase 64 (34-104) U/L Troponin I High Sens 58.6 H* (0-20) pg/ml Total Protein 7.8 (6.0-8.3) gm/dl Albumin 4.9 (3.4-5.0) gm/dl Globulin 2.9 (2.5-4.0) gm/dl Albumin/Globulin Ratio 1.7 (0.9-2) Lipase 6 L (11-82) U/L Adenovirus (PCR) Not Detected (NotDetected) B. pertussis DNA (PCR) Not Detected (NotDetected) B.parapertussis DNA PCR Not Detected (NotDetected) C. pneumoniae DNA (PCR) Not Detected (NotDetected) Coronavirus OC43 (PCR) Not Detected (NotDetected) Coronavirus HKU1 (PCR) Not Detected (NotDetected) Coronavirus 229E (PCR) Not Detected (NotDetected) SARS-CoV-2 (PCR) Not Detected (NotDetected) Coronavirus NL63 (PCR) Not Detected (NotDetected) Human Metapneumovir PCR Not Detected (NotDetected) Influenza Type A (PCR) Not Detected (NotDetected) Influenza Type B (PCR) Not Detected (NotDetected) M. pneumoniae (PCR) Not Detected (NotDetected) Parainfluenza 1 (PCR) Not Detected (NotDetected) Parainfluenza 2 (PCR) Not Detected (NotDetected) Parainfluenza 3 (PCR) Not Detected (NotDetected) Parainfluenza 4 (PCR) Not Detected (NotDetected) RSV (PCR) Not Detected (NotDetected) Entero/Rhino (PCR) Not Detected (NotDetected) 03/28/25 Range/Units 13:04 WBC (4.8-10.8) K/ul RBC (4.70-6.10) M/uL Hgb (14.0-18.0) g/dL Hct (42.0-52.0) % MCV (80.0-100.0) fL MCH (25.0-34.0) pg MCHC (32.0-36.0) g/dL RDW Std Deviation (36.4-46.3) fL RDW Coeff of Beth (11.5-14.5) % Plt Count (130-400) K/uL MPV (9.4-12.4) fL Immature Gran % (Auto) % Neut % (Auto) % Lymph % (Auto) % [place] % (Auto) % Eos % (Auto) % Baso % (Auto) % Neut # (Auto) (1.40-6.50) K/uL Lymph # (Auto) (1.20-3.40) K/uL [place] # (Auto) (0.11-0.59) K/uL Eos # (Auto) (0.00-0.50) K/uL Baso # (Auto) (0.00-0.20) K/uL Immature Gran # (Auto) (0.01-0.20) K/uL PT (9.0-12.0) Seconds INR (0.9-1.1) Sodium (136-145) mmol/L Potassium (3.5-5.1) mmol/L Chloride (98-107) mmol/L Carbon Dioxide (21-32) mmol/L Anion Gap (3-11) BUN (6-23) mg/dl Creatinine (0.6-1.4) mg/dl Est Cr Clr Drug Dosing ml/min eGFR BUN/Creatinine Ratio (10-20) Glucose (70-99(Fasting)) mg/dl Calcium (8.6-10.3) mg/dl Magnesium (1.7-2.4) mg/dl Total Bilirubin (0.2-1.0) mg/dl AST (13-39) U/L ALT (7-52) U/L Alkaline Phosphatase (34-104) U/L Troponin I High Sens 64.3 H* (0-20) pg/ml Total Protein (6.0-8.3) gm/dl Albumin (3.4-5.0) gm/dl Globulin (2.5-4.0) gm/dl Albumin/Globulin Ratio (0.9-2) Lipase (11-82) U/L Adenovirus (PCR) (NotDetected) B. pertussis DNA (PCR) (NotDetected) B.parapertussis DNA PCR (NotDetected) C. pneumoniae DNA (PCR) (NotDetected) Coronavirus OC43 (PCR) (NotDetected) Coronavirus HKU1 (PCR) (NotDetected) Coronavirus 229E (PCR) (NotDetected) SARS-CoV-2 (PCR) (NotDetected) Coronavirus NL63 (PCR) (NotDetected) Human Metapneumovir PCR (NotDetected) Influenza Type A (PCR) (NotDetected) Influenza Type B (PCR) (NotDetected) M. pneumoniae (PCR) (NotDetected) Parainfluenza 1 (PCR) (NotDetected) Parainfluenza 2 (PCR) (NotDetected) Parainfluenza 3 (PCR) (NotDetected) Parainfluenza 4 (PCR) (NotDetected) RSV (PCR) (NotDetected) Entero/Rhino (PCR) (NotDetected) MDM Narrative Patient is a 40-year-old male who presents to the emergency department with complaints of chest pain. Patient states that he has been having intermittent chest pain that last approximately 1 to 4 minutes. Patient notes that this has been ongoing for several days and he was recently admitted to the hospital on Thursday, leaving the hospital AMA on Thursday. Patient states that he is having worsening episodes of chest pain today and noting that he is dizzy and short of breath. Patient was evaluated by myself and findings were noted in the physical exam above. Patient was ordered IV placement, lab work, EKG, cardiac monitoring, and a [employer] upper respiratory panel. Patient's lab work resulted with a normal white blood cell count of 7.61. Patient had no indication of anemia with a hemoglobin of 16.3 and hematocrit of 44.6. Patient had no significant electrolyte imbalance noted. Patient did have an elevated troponin level that resulted at 58.6. Patient's [employer] respiratory panel came back negative for any findings. Patient also had a chest x-ray that was completed and interpreted by radiology to show no evidence of any acute process. Patient had a subsequent episode of severe chest pain while here in the emergency department. While no EKG changes were noted and the patient appears to stay in a normal sinus or sinus tachycardic rhythm when these episodes of chest pain occur, another EKG was completed. The patient still appears to be in normal sinus rhythm. Patient was ordered a repeat troponin at this time and cardiology was consulted. Patient also had a CTA that was completed and interpreted by radiology to for concern of moderate plaque within the patient's LAD, noting diminished contrast within the LAD. I did speak with Dr. Rangel of [facility] cardiology and gave him a full report of the patient's chief complaint, current status and the results of his imaging and lab work. He verbalized understanding and agreed that the patient needed to be admitted to the hospital to have further cardiac workup. He discussed that he would continue to watch out the patient's troponin levels trend and cardiology would consider stress test versus cardiac cath. Patient's repeat troponin resulted and was elevated at 64.3. I reached out and spoke with [facility] regarding this patient and gave them a full report on the patient's chief complaint, current status and the results of his imaging and lab work. I also made them aware of my consultation with cardiology they verbalized understanding and are agreeable to admit the patient under their service with consultation to cardiology. Please refer the [facility]'s documentation, as well as [facility] cardiology's documentation for further evaluation and management of this patient. Impression NSTEMI (non-ST elevated myocardial infarction), Chest pain Discharge Plan Visit Data Chief Complaint: Chest Pain Stated Complaint: CHEST PAIN, DIZZY ED Provider: [facility] ED Midlevel Provider: Diana Rosales Discharge Problem: NSTEMI (non-ST elevated myocardial infarction), Chest pain Patient Disposition: Admitted As Inpatient Condition: Fair Discharge Instructions Interventions: ED Discharge Assessment Last Done: 03/28/25 14:46 ED DC CONDITION Conditon at Discharge Condition at Discharge: Fair Discharge Problem: Chest pain Qualifiers: Chest pain type: unspecified Qualified Code(s): R07.9 - Chest pain, unspecified
--- NOTE | 2025-03-28 11:13 | XRay Report ---
XR chest 1V portable HISTORY: 40 years-old Male Chest pain, nonspecific COMPARISON: 03/25/2025 TECHNIQUE: AP view of the chest FINDINGS: Cardiomediastinal and hilar silhouettes are within normal limits. No pneumothorax, pleural effusion, airspace consolidation or pulmonary edema. Bones of the chest appear grossly intact. IMPRESSION: No acute process. ACT 112: Negative or not required by law. The above report was generated using voice recognition software. It may contain grammatical, syntax o r spelling errors. Electronically signed by: Timmy Barrios M.D. 03/28/2025 11:12 AM
[2025-03-28 11:24] LABS: Hematocrit (blood only) 44.6 % (42.0-52.0); Hemoglobin 16.3 g/dL (14.0-18.0); Immature Granulocytes # (auto) 0.01 K/uL (0.01-0.20); Immature Granulocytes % (auto) 0.1 %; Mean Corpuscular Hemoglobin 31.5 pg (25.0-34.0); Mean Corpuscular Volume 86.1 fL (80.0-100.0); Platelet Count 188 K/uL (130-400); RDW Standard Deviation 38.5 fL (36.4-46.3); Red Blood Count 5.18 M/uL (4.70-6.10); White Blood Count 7.61 K/ul (4.8-10.8)
[2025-03-28 11:42] LABS: Alanine Aminotransferase 24.0 U/L (7-52); Albumin Globulin Ratio 1.7 (0.9-2); Albumin Level 4.9 gm/dl (3.4-5.0); Alkaline Phosphatase 64.0 U/L (34-104); Anion Gap 9.0 (3-11); Bilirubin,Total 0.6 mg/dl (0.2-1.0); Blood Urea Nitrogen 20.0 mg/dl (6-23); Calcium 9.4 mg/dl (8.6-10.3); Carbon Dioxide 25.0 mmol/L (21-32); Chloride 104.0 mmol/L (98-107); Creatinine Clr Calc Pharmacy 107.0 ml/min; Globulin 2.9 gm/dl (2.5-4.0); Glucose 115.0 mg/dl (70-99(Fasting)); Lipase 6.0 U/L (11-82); Magnesium 1.9 mg/dl (1.7-2.4); Potassium 3.9 mmol/L (3.5-5.1); Sodium 138.0 mmol/L (136-145); Total Protein 7.8 gm/dl (6.0-8.3)
[2025-03-28] MEDS: OPTIRAY 320 125ml IV ONE (11:55)
[2025-03-28 12:08] LABS: Chlamydia pneumoniae PCR Not Detected (NotDetected); Coronavirus 229E PCR Not Detected (NotDetected); Coronavirus CoV-2 (COVID19)PCR Not Detected (NotDetected); Coronavirus HKU1 PCR Not Detected (NotDetected); Coronavirus NL63 PCR Not Detected (NotDetected); Coronavirus OC43PCR Not Detected (NotDetected); Human Metapneumovirus PCR Not Detected (NotDetected); Parainfluenza Virus 1 PCR Not Detected (NotDetected); Parainfluenza Virus 2 PCR Not Detected (NotDetected); Parainfluenza Virus 3 PCR Not Detected (NotDetected); Parainfluenza Virus 4 PCR Not Detected (NotDetected); Respiratory Syncytial VirusPCR Not Detected (NotDetected); Rhinovirus/Enterovirus PCR Not Detected (NotDetected)
--- NOTE | 2025-03-28 12:17 | CT Scan Report ---
CT ANGIOGRAM OF THE CHEST CLINICAL HISTORY: Chest pain. Evaluate for pulmonary embolus. COMPARISON STUDY: Chest radiograph March 25, 2025 and chest radiograph performed earlier today. TECHNIQUE: Following the IV administration of 120 cc of Optiray 320, CT angiogram of the chest was pe rformed from the upper abdomen to the thoracic inlet utilizing the pulmonary embolus protocol. Images are reviewed in the axial, sagittal, and coronal planes. 3-D MIPS images are created and assessed. I V contrast was administered without complication. A dose lowering technique was utilized adhering to the principles of ALARA. CT DOSE: 1006.78 mGy.cm FINDINGS: No pulmonary emboli are identified. Size of the heart is normal. There is no thoracic aorti c dissection. Of note, there is moderate calcified plaque within the left anterior descending coronar y artery. There is apparent diminished contrast within the LAD, just distal to the plaque. However, t here is contrast within the more distal branches of the LAD. Therefore, this finding may be artifactu al and is suboptimally assessed on nongated exam. No pericardial effusion is present. There is no pne umothorax or pleural effusion. No consolidation to suggest pneumonia. There is no lymphadenopathy. Vi sualized portions of the upper abdomen are unremarkable. IMPRESSION: 1. No pulmonary emboli identified. 2. Moderate calcified plaque within the left anterior descending coronary artery, greater than expect ed for age. Apparent diminished contrast within the LAD, just distal to plaque, may be artifactual on this nongated exam although a significant stenosis cannot be excluded on this study. Cardiology cons ultation is recommended. Findings discussed with Diana Rosales at time of dictation. ACT 112: Negative or not required by law. Electronically signed by: Wili Rodriguez M.D. 03/28/2025 12:15 PM
[2025-03-28] MEDS: ASPIRIN CHEW 324 MG PO STA (12:40)
[2025-03-28] MEDS: HEPARIN 25000 UNIT/500 ML D5W 25,000 UNITS/500 ML BAG IV SCH (12:43)
[2025-03-28] MEDS: HEPARIN SOD (PORCINE) 1000 UNIT/ML IV ONE (12:44)
[2025-03-28] MEDS: Heparin IV Adult Wt-Based Standard w/ INITIAL Bolus Protocol IV STA (12:44)
[2025-03-28 13:24] LABS: INR 1.0 (0.9-1.1); Prothrombin Time 11.0 Seconds (9.0-12.0)
--- NOTE | 2025-03-28 13:35 | History & Physical Report ---
Date of Service March 28, 2025 Assessment & Plan (1) Midsternal chest pain: (2) Cigarette smoker one half pack a day or less: (3) Elevated troponin: (4) Bradycardia with 41-50 beats per minute: (5) SVT (supraventricular tachycardia): (6) NSTEMI (non-ST elevated myocardial infarction): Plan 40 y/o male with PMHx opioid use disorder on buprenorphine, presents with recurrent chest pain: #NSTEMI: EKG without overt ischemic changes - however, trop elevated and patient has recurrent anginal symptoms S/P ASA 324mg, continue daily aspirin 81mg Continue heparin gtt Trend troponin to peak TTE 03/26 WNL Cardiology consulted, appreciate recs - NPO @ midnight for possible cath Nitro PRN for acute chest pain EKG PRN for acute chest pain #Sinus bradycardia // #SVT // #Wide complex tachycardia: All noted at different times during previous hospital stay Difficult to integrate into a cohesive picture, appreciate cardiology assistance Continuous cardiac monitoring, will review in AM #OUD: Continue buprenorphine Dispo: Admit PCU VTE ppx: Heparin gtt Diet: HH, NPO @ midnight Full Code History of Present Illness Primary Care Provider: IRVING Earl 40 y/o male with PMHx opioid use disorder on buprenorphine, presents with chest pain. Has been experiencing intermittent, sharp substernal chest pain lasting 1- 5 minutes at a time for the past month. Random onset, not exertionally correlated. Chest pain accompanied by shortness of breath and diaphoresis. Also generalized fatigue. FHx notable for VT in father in his mid-50s. Patient is a chronic tobacco user, also drinks 2-4 monster energy drinks per day. Patient recently admitted a few days ago, left AMA - during that time, noted to have intermittent sinus bradycardia, SVT, and brief runs of VT. Also in the past month, has been alerted by his smart watch of HR dipping as low as high 30s. Occasionally has palpitations as well. All symptoms developed over the past month - prior to that, denies cardiac sx. Allergies Allergy/AdvReac Type Severity Reaction Status Date / Time No Known Allergies Allergy Verified 03/27/25 09:46 Home Medications Medication Instructions Recorded Confirmed Type buprenorphine HCl 8 mg sublingual 8 mg sublingual DAILY 03/25/25 03/28/25 History tablet Past Med/Surg History Problem List (Updated 03/28/25 @ 15:24 by Breezy Vargas DO) NSTEMI (non-ST elevated myocardial infarction) Syncope SVT (supraventricular tachycardia) Cigarette smoker one half pack a day or less Bradycardia with 41-50 beats per minute Elevated troponin (Acute) Midsternal chest pain (Acute) Medical History Chronic left hip pain Low testosterone Surgical History No significant past surgical history Family History Mother Myocardial infarction Father Hip dysplasia Hypertension Alzheimer disease Uncle Diabetes Grandfather (Paternal) Alzheimer disease Denies family history of Ovarian cancer Prostate cancer Breast cancer Colorectal cancer Social History Smoking Status: Former smoker Tobacco Type: Cigarettes Age Started Using Tobacco: 18; Age Quit Using Tobacco: 40; packs per day: 0.5; Hx Alcohol Use: No Hx Substance Use: No Preferred Language: Danish Communication Ability: Effective 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 Beliefs That Will Affect Care: None marital status: Life Partner Current Living Situation: Spouse current occupational status: employed current occupation: [employer] Feels Safe at Home: Yes Safety Concerns: Feels Safe At This Time Childhood Exposure to Second-Hand Smoke: Yes Dental Care, Regularly: Yes Physical Activity Frequency: 3-4 Times per Week Seatbelt Use: always Sunscreen Use: Yes Review of Systems Review of Systems: as per HPI Physical Exam Physical Exam: Constitutional: no acute distress HEENT: NCAT, no conjunctival injection CV: RRR, extremities well-perfused, no LE edema Resp: lungs clear to auscultation, no increased work of breathing GI: nondistended MSK: no gross deformities Skin: warm, dry, no rash appreciated Neuro: alert, oriented, no focal neurologic deficit appreciated Results & Data Results & Data Vital Signs (Past 12 Hours) Vital Signs Temp Pulse Resp BP Pulse Ox O2 Del Method O2 Flow Rate 03/28/25 12:36 58 L 21 146/80 H 96 Room Air 03/28/25 12:09 53 L 03/28/25 12:05 56 L 21 163/79 H 94 Room Air 03/28/25 12:05 61 27 H 163/79 H 100 Room Air 03/28/25 11:30 54 L 16 125/72 94 Room Air 03/28/25 11:17 94 Room Air 0 03/28/25 11:14 62 16 94 Room Air 03/28/25 11:04 59 L 10 L 108/93 97 Room Air 03/28/25 10:46 36.8 C 73 16 180/103 H 98 Room Air Supervising Physician Co-Signing Physician Notes I personally examined the patient and verified all danielson points of history and exam, discussed case, and agree with decision making with Dr Sam alberts. Intermittent heart racing and chest tightnessmostly towards the evening and after eating. Fairly random onset and resolution otherwise with no clear triggering factors outside of maybe after eating. also notes that he appears to stop breathing when he is asleep. Vitals noted, in general he is awake and alert pleasant no distress. HEENT normocephalic atraumatic mucous membranes moist. Breathing unlabored no accessory muscle use good effort. Skin without rashes pallor or icterus. Neuro without focal deficits. Chest painseems like both rhythm and ischemic etiologies could be at play. Monitor on rhythm. Asked cardiology for assistance. Seems to warrant either cath or stress testing as a relates to potential ischemic symptoms. Follow closely. Otherwise as above. Resident Activity Tracking Resident Involvement: Resident Care Provided Care Provided: Adult Hospital Medicine
[2025-03-28] MEDS: NITROGLYCERIN 2% OINTMENT 30GM TUBE EXT ONE (13:56)
[2025-03-28] MEDS ORDERED: ACETAMINOPHEN 325 MG TAB PO PRN (14:06)
[2025-03-28] MEDS ORDERED: POLYETHYLENE (MIRALAX) 17 GM PACK PO PRN (14:06)
[2025-03-28] MEDS ORDERED: ALUMINUM/MAGNESIUM SUSP 30 ML UDC PO PRN (14:06)
[2025-03-28] MEDS ORDERED: MELATONIN 3 MG TAB PO PRN (14:06)
[2025-03-28] MEDS ORDERED: ONDANSETRON INJ 2 MG/ML 2 ML VIAL IV PRN (14:06)
--- NOTE | 2025-03-28 16:55 | Billing Data ---
Date of Service March 28, 2025 Coding Level of Care Code 80206 INT INP/OBS CARE
[2025-03-28 19:06] LABS: ANTI-Xa, UFH(UnfractionatedHep 0.40 IU/ml (0.3-0.7)
[2025-03-28] MEDS: MAGNESIUM SULFATE / D5W 1 GM/100 ML BAG IV SCH (21:18)
[2025-03-29] MEDS: NITROGLYCERIN SL 0.4 MG/TAB TAB SL PRN (01:52)
--- NOTE | 2025-03-29 06:46 | Hospitalist Progress Note ---
Date of Service March 29, 2025 Assessment & Plan (1) Midsternal chest pain: (2) Cigarette smoker one half pack a day or less: (3) Elevated troponin: (4) Bradycardia with 41-50 beats per minute: (5) SVT (supraventricular tachycardia): (6) NSTEMI (non-ST elevated myocardial infarction): Plan 40 y/o male with PMHx opioid use disorder on buprenorphine, presents with recurrent chest pain: #NSTEMI: Serial EKGs initially without ischemic changes - repeat EKG 12/3 AM d/t chest pain demonstrated T-wave inversions/biphasic T-waves in anterolateral leads Trop initially peaked at 64, stat repeat following recurrence of chest pain 12 CTA chest noted calcified plaque within LAD with diminished contrast distal to plaque Cardiology consulted - s/p cardiac cath: notable for 90+% early-mid LAD stenosis and PCI w/ placement of EVONNE Continue DAPT with aspirin and Prasugrel for at least 1 year Start atorvastatin 80mg/d Start valsartan 80mg/d Beta james deferred due to bradycardia Nitro PRN for acute chest pain EKG PRN for acute chest pain #Sinus bradycardia // #SVT // #Wide complex tachycardia: All noted at different times during previous hospital stay Overnight telemetry reviewed, notable for sinus bradycardia with frequent PVCs - no SVT or VT - suspect brief runs of VT may have stemmed from ischemia - SVT more likely a separate and distinct problem - consider outpatient cardiac event monitor #OUD: Continue buprenorphine VTE ppx: immediate chemical ppx deferred in periprocedural setting, anticipate discharge tomorrow but will start lovenox if hospital stay extended Diet: Admission and Anticipated Discharge Date Admission Date: March 28, 2025 Supervising Physician Co-Signing Physician Notes I personally examined the patient and verified all danielson points of history and exam, discussed case, and agree with decision making with Dr Vargas Feeling good post cath. Discussed findings and next steps. Vitals noted, in general he is awake and alert pleasant no distress. HEENT normocephalic atraumatic mucous membranes moist. Breathing unlabored no accessory muscle use good effort. Skin without rashes pallor or icterus. Neuro without focal deficits. Coronary artery disease/unstable angina/NSTEMIstatus post cath and stenting. Med management, lifestyle change, secondary risk reduction. SVTprobably was having SVT precipitating ischemia that led to the VT as far as his cascade of symptoms over the weekend. Now with stenting and no other significantly tight lesions, the SVT will be less dangerous, but obviously still could be problematic. Ongoing EP evaluation as an outpatient. otherwise as above Subjective Patient has continued to have chest pain - overnight, reports constant baseline 2/10 pain with periodic exacerbations. Responsive to nitro each time. Overnight tele monitor notable for sinus bradycardia with frequent PVCs. Review of Systems Review of Systems: as per HPI Physical Exam Physical Exam: Constitutional: no acute distress HEENT: NCAT, no conjunctival injection CV: RRR, extremities well-perfused, no LE edema Resp: lungs clear to auscultation, no increased work of breathing GI: nondistended MSK: no gross deformities Skin: warm, dry, no rash appreciated Neuro: alert, oriented, no focal neurologic deficit appreciated Results & Data Results & Data Vital Signs (Past 12 Hours) Vital Signs Temp Pulse Pulse Resp BP Pulse Ox O2 Del Method 03/29/25 02:31 36.7 C 47 L 18 130/80 94 Room Air 03/29/25 01:58 49 L 22 117/81 97 Nasal Cannula 03/28/25 22:31 36.6 C 47 L 18 139/90 97 Room Air 03/28/25 21:54 57 L 03/28/25 19:23 36.9 C 51 L 18 174/91 H 95 Room Air O2 Flow Rate 03/29/25 02:31 03/29/25 01:58 2 03/28/25 22:31 03/28/25 21:54 03/28/25 19:23 Resident Activity Tracking Resident Involvement: Resident Care Provided Care Provided: Adult Hospital Medicine
[2025-03-29 07:04] LABS: Cholesterol 173.0 mg/dl (0-200); HDL Cholesterol 33.0 mg/dl; Triglycerides 109.0 mg/dl (0-150)
[2025-03-29 07:41] LABS: ANTI-Xa, UFH(UnfractionatedHep 0.36 IU/ml (0.3-0.7)
[2025-03-29] MEDS: ASPIRIN 81 MG ECTAB PO SCH (08:51)
--- NOTE | 2025-03-29 10:06 | Cardiology Consultation ---
Date of Consultation March 29, 2025 Assessment & Plan (1) Chest pain: 2. Elevated HS TropI 3. Coronary artery calcifications on CTA 4. Sinus bradycardia 5. Paroxysmal SVT 6. Family history of premature CAD Here with recurrent substernal chest pain, mildly elevated troponin and new variable blood pressure/heart rates. Chest pain has persisted despite sublingual/topical nitroglycerin. Has continued to have pain with no recurrence of prior SVT. Pain partially reproducible with palpation. Suspicion for ACS is elevated particularly in the setting of heavy coronary calcification, and family history. Recommend further evaluation with cardiac catheterization. Discussed risk, benefits, alternatives of procedure with patient and his significant other and they are in agreement with proceeding. Further recommendations pending findings of coronary angiography. History of Present Illness Attending Physician: Mason Lara DO History of Present Illness Mr. Gerardo is a very pleasant 40-year-old man seen today in the setting of recurrent chest pain. He was recently hospitalized 3 days ago with similar symptoms. He states that for the last few weeks has been having intermittent sharp substernal chest pain which can occur both with rest and worsen with exertion. Has never had similar chest symptoms in the past. Does report 1 episode of syncope in the past. With current chest pain as noted intermittent dizziness, diaphoresis as well as low heart rates on his smart watch. He also reports generalized fatigue, decreased appetite and generally feeling unwell. No viral symptoms or sick contacts. During his prior hospitalization was noted to have an episode of SVT to the 150s which potentially correlated with chest pain in the ED. The remainder of the time was in sinus bradycardia with intermittent PVCs. Echocardiogram showed preserved LV function with no regional wall motion abnormalities or no valvular pathology. Was seen by cardiology and it was recommended to undergo exercise stress but patient declined and plan had been for outpatient evaluation. He states that initially was feeling well, went to work where he is active, frequently walking for 5 miles in a day and after work without increasingly fatigued before having recurrence of more severe substernal chest pain. Stuttering chest pain overnight and return to ED. In ED repeat ECG unremarkable. HS TropI 58, trended up to 64 and a since normalized. He underwent CTA which was negative for PE but did show LAD calcification. While hospitalized has continued to have chest discomfort requiring nitro patch and sublingual nitroglycerin with modest relief. Has remained primarily in sinus bradycardia in the 40s but as low as 30s. No recurrence of SVT. Family history: Father from [place] at age 52. Mother had hypertension and CAD with stents placed in her late 50s. Brother/sister without cardiac issues. 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 Smoked for 20 years, quitting 1 week ago. Allergies Allergy/AdvReac Type Severity Reaction Status Date / Time No Known Allergies Allergy Verified 03/27/25 09:46 Home Medications Medication Instructions Recorded Confirmed Type buprenorphine HCl 8 mg sublingual 8 mg sublingual DAILY 03/25/25 03/28/25 History tablet Patient History Medical History Chronic left hip pain Low testosterone Surgical History No significant past surgical history Family History Mother Myocardial infarction Father Hip dysplasia Hypertension Alzheimer disease Uncle Diabetes Grandfather (Paternal) Alzheimer disease Denies family history of Ovarian cancer Prostate cancer Breast cancer Colorectal cancer Social History Smoking Status: Former smoker Tobacco Type: Cigarettes Age Started Using Tobacco: 18; Age Quit Using Tobacco: 40; packs per day: 0.5; Hx Alcohol Use: No Hx Substance Use: No Preferred Language: Eritrean Communication Ability: Effective Biochemistry Teacher Required: No Beliefs That Will Affect Care: None marital status: Life Partner Current Living Situation: Spouse current occupational status: employed 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 Vascular: 2+ radial bilaterally Abdomen: Soft, nontender Extremities: Well perfused, no peripheral edema Neuro: Nonfocal Psych: Alert orient x3, normal affect and mood Results & Data Vital Signs (Past 12 Hours) Vital Signs Temp Pulse Pulse Resp BP Pulse Ox O2 Del Method 03/29/25 08:56 122/79 03/29/25 08:48 126/67 03/29/25 08:01 40 L 03/29/25 08:00 98.2 F 51 L 16 133/75 97 Room Air 03/29/25 02:31 98.1 F 47 L 18 130/80 94 Room Air 03/29/25 01:58 49 L 22 117/81 97 Nasal Cannula 03/28/25 22:31 97.9 F 47 L 18 139/90 97 Room Air 03/28/25 21:54 57 L O2 Flow Rate 03/29/25 08:56 03/29/25 08:48 03/29/25 08:01 03/29/25 08:00 03/29/25 02:31 03/29/25 01:58 2 03/28/25 22:31 03/28/25 21:54 PG Care Time/CCT Total # of Minutes Spent Total Time Spent with Patient: Total time spent is greater than 50% in coordination of care (as documented) at patient's floor/unit and/or counseling patient: Coding Level of Care Code 71742 IN/OBS CONSULT LVL 4,60M Diagnoses Chest pain R07.9
--- NOTE | 2025-03-29 10:29 | Electrocardiogram Report ---
Test Reason : Blood Pressure : */* mmHG Vent. Rate : 62 BPM Atrial Rate : 62 BPM P-R Int : 154 ms QRS Dur : 90 ms QT Int : 398 ms P-R-T Axes : 59 62 75 degrees QTcB Int : 403 ms Normal sinus rhythm Normal ECG When compared with ECG of 25-Mar-2025 17:12, Premature ventricular complexes are no longer Present Premature atrial complexes are no longer Present Confirmed by Grayson Rangel ([id number]) on 03/29/2025 10:28:43 AM Referred By: REFERRED SELF Confirmed By: Grayson Rangel
--- NOTE | 2025-03-29 10:29 | Electrocardiogram Report ---
Test Reason : Blood Pressure : */* mmHG Vent. Rate : 58 BPM Atrial Rate : 58 BPM P-R Int : 162 ms QRS Dur : 90 ms QT Int : 396 ms P-R-T Axes : 37 34 66 degrees QTcB Int : 388 ms Sinus bradycardia with sinus arrhythmia Nonspecific ST abnormality Abnormal ECG When compared with ECG of 28-Mar-2025 10:52, (unconfirmed) No significant change was found Confirmed by Grayson Rangel ([id number]) on 03/29/2025 10:28:50 AM Referred By: REFERRED SELF Confirmed By: Grayson Rangel
--- NOTE | 2025-03-29 10:30 | Electrocardiogram Report ---
Test Reason : Blood Pressure : */* mmHG Vent. Rate : 61 BPM Atrial Rate : 61 BPM P-R Int : 160 ms QRS Dur : 90 ms QT Int : 388 ms P-R-T Axes : 40 32 68 degrees QTcB Int : 390 ms Normal sinus rhythm Normal ECG When compared with ECG of 28-Mar-2025 12:02, (unconfirmed) No significant change was found Confirmed by Grayson Rangel ([id number]) on 03/29/2025 10:29:29 AM Referred By: REFERRED SELF Confirmed By: Grayson Rangel
--- NOTE | 2025-03-29 10:40 | Electrocardiogram Report ---
Test Reason : Blood Pressure : */* mmHG Vent. Rate : 38 BPM Atrial Rate : 38 BPM P-R Int : 162 ms QRS Dur : 88 ms QT Int : 486 ms P-R-T Axes : 53 49 90 degrees QTcB Int : 386 ms Marked sinus bradycardia T wave abnormality, consider anterolateral ischemia Abnormal ECG When compared with ECG of 28-Mar-2025 12:54, Vent. rate has decreased by 23 bpm T wave inversion now evident in Anterior leads Confirmed by Grayson Rangel ([id number]) on 03/29/2025 10:40:26 AM Referred By: REFERRED SELF Confirmed By: Grayson Rangel
--- NOTE | 2025-03-29 10:59 | Pre Anesthesia Assessment ---
Date of Service March 29, 2025 Pre Sedation Assessment Vital Signs Temp Pulse Pulse Resp BP BP Pulse Ox 03/29/25 10:13 40 L 14 170/84 H 99 03/29/25 08:56 122/79 03/29/25 08:48 126/67 03/29/25 08:01 40 L 03/29/25 08:00 98.2 F 51 L 16 133/75 97 03/29/25 02:31 98.1 F 47 L 18 130/80 94 03/29/25 01:58 49 L 22 117/81 97 03/28/25 22:31 97.9 F 47 L 18 139/90 97 03/28/25 21:54 57 L 03/28/25 19:23 98.4 F 51 L 18 174/91 H 95 03/28/25 15:26 49 L 03/28/25 15:08 03/28/25 14:08 98.2 F 51 L 16 136/66 95 03/28/25 13:48 64 21 03/28/25 13:32 182/101 H 03/28/25 13:32 182/101 H 03/28/25 13:32 182/101 H 03/28/25 13:32 182/101 H 03/28/25 13:32 182/101 H 03/28/25 12:36 64 14 146/80 H 98 03/28/25 12:36 58 L 21 146/80 H 96 03/28/25 12:09 53 L 03/28/25 12:05 56 L 21 163/79 H 94 03/28/25 12:05 61 27 H 163/79 H 100 03/28/25 11:30 54 L 16 125/72 94 03/28/25 11:17 94 03/28/25 11:14 62 16 94 03/28/25 11:04 59 L 10 L 108/93 97 O2 Del Method O2 Flow Rate 03/29/25 10:13 Room Air 03/29/25 08:56 03/29/25 08:48 03/29/25 08:01 03/29/25 08:00 Room Air 03/29/25 02:31 Room Air 03/29/25 01:58 Nasal Cannula 2 03/28/25 22:31 Room Air 03/28/25 21:54 03/28/25 19:23 Room Air 03/28/25 15:26 03/28/25 15:08 Room Air 03/28/25 14:08 Room Air 03/28/25 13:48 03/28/25 13:32 03/28/25 13:32 03/28/25 13:32 03/28/25 13:32 03/28/25 13:32 03/28/25 12:36 Room Air 03/28/25 12:36 Room Air 03/28/25 12:09 03/28/25 12:05 Room Air 03/28/25 12:05 Room Air 03/28/25 11:30 Room Air 03/28/25 11:17 Room Air 0 03/28/25 11:14 Room Air 03/28/25 11:04 Room Air Cardiovascular + regular rate Respiratory + respiratory effort normal Pre-Sedation Airway Assessment Smoking Status: Former smoker Hx Sleep Apnea: No Hx Difficult Intubation: No Short, Thick Neck: No Thyromental Distance: > or= 3.5 Finger Breadths Oral Cavity: + WNL Mallampati Class: II ASA: ASA2 NPO Status Date of Last Intake of Fluids: 03/28/25 Time of Last Intake of Fluids: 16:30 Date of Last Intake of Solid Food: 03/28/25 Time of Last Intake of Solid Foods: 16:30 Procedure Planning Contraindications for Sedation: none Current Medications Reviewed: Yes Notes The planned sedation has been discussed with the patient. Informed Consent was obtained. I have identified the patient, determined the appropriateness of sedation and have assessed the patient immediately prior to the procedure. All medicine(s) and interventions are by my order.
[2025-03-29] MEDS: HEPARIN (PORCINE) 1000 UNIT/ML 10 ML (CATH LAB USE ONLY) ONE ×2 (12:38→12:40)
[2025-03-29] MEDS: NITROGLYCERIN/D5W 100MCG/ML 20ML SYR ONE (12:39)
[2025-03-29] MEDS: niCARdipine 2,000 MCG/20 ML SYR ONE (12:39)
[2025-03-29] MEDS: MIDAZOLAM HCL 1 MG/ML 2ML VIAL ONE ×3 (12:39)
[2025-03-29] MEDS: diphenhydrAMINE 50 MG/ML VIAL ONE (12:40)
[2025-03-29] MEDS: PRASugrel TAB 10 MG TAB PO ONE (12:41)
--- NOTE | 2025-03-29 12:57 | Post Anesthesia Assessment ---
Date of Service March 29, 2025 Post Sedation Assessment Vital Signs Temp Pulse Pulse Resp BP BP Pulse Ox 03/29/25 10:13 40 L 14 170/84 H 99 03/29/25 08:56 122/79 03/29/25 08:48 126/67 03/29/25 08:01 40 L 03/29/25 08:00 98.2 F 51 L 16 133/75 97 03/29/25 02:31 98.1 F 47 L 18 130/80 94 03/29/25 01:58 49 L 22 117/81 97 03/28/25 22:31 97.9 F 47 L 18 139/90 97 03/28/25 21:54 57 L 03/28/25 19:23 98.4 F 51 L 18 174/91 H 95 03/28/25 15:26 49 L 03/28/25 15:08 03/28/25 14:08 98.2 F 51 L 16 136/66 95 03/28/25 13:48 64 21 03/28/25 13:32 182/101 H 03/28/25 13:32 182/101 H 03/28/25 13:32 182/101 H 03/28/25 13:32 182/101 H 03/28/25 13:32 182/101 H O2 Del Method O2 Flow Rate 03/29/25 10:13 Room Air 03/29/25 08:56 03/29/25 08:48 03/29/25 08:01 03/29/25 08:00 Room Air 03/29/25 02:31 Room Air 03/29/25 01:58 Nasal Cannula 2 03/28/25 22:31 Room Air 03/28/25 21:54 03/28/25 19:23 Room Air 03/28/25 15:26 03/28/25 15:08 Room Air 03/28/25 14:08 Room Air 03/28/25 13:48 03/28/25 13:32 03/28/25 13:32 03/28/25 13:32 03/28/25 13:32 03/28/25 13:32 Recovery Score Activity: Moves 4 extremities Respiration: Deep Breath/Cough Circulation: +/-20% PreAnes Value Consciousness: Fully Awake Oxygen Saturation: O2 needed for >90% Discharge Sedation Level of Care: Fast Track Phase II
--- NOTE | 2025-03-29 13:04 | Cardiac Catheterization ---
[facility] Data: It Operations Specialist Cardiac Status Clinical evaluation leading to the procedure CAD Presenation: Non STEMI Diagnostic Physicians Name: Darren Barahona MD Closure Device Recommendations: PCI without planned CABG Cardiac Cath Procedure Full Procedure Date March 29, 2025 Pre-Procedure Diagnosis Pre-Procedure Diagnosis: Non STEMI AUC Score AUC Score: 8 Post-Procedure Diagnosis Post-Procedure Diagnosis: Severe CAD, Successful PCI and Normal Intracardiac Pressures Procedure(s) Performed Procedure(s) Performed: Coronary Angiography, Left Heart Cath, Drug Eluting Stent and IVUS Hris Administrator Darren Barahona MD Perforating Machine Operator(s) Tye Estimated Blood Loss Estimated Blood Loss: 40 Medication(s) Medication(s): Fentanyl, Heparin, Lidocaine 1%, Nicardipine, Nitroglycerin and Versed Medication(s): Prasugrel Summary of Findings Indication: NSTEMI Access: 6 Fr slender right radial artery Catheters: [place], diagnostic JR4, EBU 3.5 guide Findings: LM -normal caliber, no significant disease LAD -large caliber, 90 to 95% earlymid LAD with haziness suggestive of thrombus, 50% mid stenosis after takeoff of D2. Latemid with luminal irregularities. Distal vessel without significant disease and wraps around apex. Medium D1 without disease. Large D2 without disease. Circumflex -large caliber, codominant, no significant disease. Large OM 2 without significant disease. RCA -dominant, medium caliber, 20-30% proximal. Remainder of RCA without significant disease. Small RPDA without disease. LVEDP -8 -- PCI -- Antithrombotic therapy: Heparin, prasugrel Procedure: Left main cannulated with EBU 3.5 guide Pre-procedure flow ASAD 3 BMW wire passed across lesion into distal vessel Ugarte IVUS catheter placed to mid LAD. Pullback revealed severe diffuse heterogeneous plaque with thrombus extending from mid segment across takeoff of D2 back to takeoff of D1. Ostial LAD, left main without significant disease. Senior Chemist 50 wire placed into D2 Mid LAD lesion predilated with 3.0 compliant balloon Dilated lesion stented with 4.0 x 38 mm Eden drug-eluting stent D2 rewired through stent struts with whisper wire. Senior Chemist 50 wire removed Stent post-dilated with 4.5 noncompliant balloon Ostium of D2 dilated through stent struts with 2.5 balloon to low atmospheres IC vasodilators administered for spasm Post procedure ASAD 3 flow, stent well expanded with minimal residual stenosis and no apparent cardiac complications. Arterial Closure: TR band Summary: 1. Severe single vessel coronary artery disease - 90+% earlymid LAD stenosis 2. No significant nonculprit disease 3. Normal intracardiac filling pressure 4. Successful PCI of earlymid LAD with single drug-eluting stent (4.0 x 38 mm Emile; postdilated with 4.5 NC) extending across takeoff of second diagonal PTCA of jailed ostium of second diagonal with 2.5 balloon Recommendations: To PCU for continued monitoring Loaded with prasugrel 60 mg in It Operations Specialist Continue dual-antiplatelet therapy for at least 1 year Continue statin, and ASCVD risk factor modification Hemodynamics Rest Ao:: 149/93/115 Final Ao: 149/93/115 LV: 121/8 Recommendations Recommendations: PCI without planned CABG Specimens Specimens: None Radiation Exposure (mGy) 2780 Contrast (mls) 160 Anesthesia moderate 4070-6994 Procedural Complication(s) None Disposition PCU I attest to the content of the Intraoperative Record and any orders documented therein. Any exceptions are noted below. [facility] Card Cath Procedure Codes Cardiac Catheterization Procedure 1: Cardiovascular Cath Procedures: 60975 Coronaries and LHC (+/-LV) Therapeutic Services & Ancillary Procedure 1: Cardiovascular Tx and Anc Procedures: 80611 IV Ultrasound (Coronary or Graft) Moderate Sedation Procedure 1: Sedation/Anesthesia: 27278 Mod Sedation by the same physician;Init15 Min Child Age 5 & Up Procedure 2: Sedation/Anesthesia: 05678 Mod Sedation by the same physician; Ea [id number] Minutes Stenting Procedure 1: Cardiovascular Stent Procedures: 58615 Perc transcatheter placement of intracoronary stent(s), with ang PG Care Time/CCT Total # of Minutes Spent Total Time Spent with Patient: Total time spent is greater than 50% in coordination of care (as documented) at patient's floor/unit and/or counseling patient:
[2025-03-29] MEDS: ATORVASTATIN 40 MG TAB PO SCH (13:28)
[2025-03-29 13:32] LABS: Hemoglobin A1C 5.3 % (4.5-5.6)
--- NOTE | 2025-03-29 14:41 | Electrocardiogram Report ---
Test Reason : Blood Pressure : */* mmHG Vent. Rate : 46 BPM Atrial Rate : 46 BPM P-R Int : 160 ms QRS Dur : 84 ms QT Int : 468 ms P-R-T Axes : 48 32 78 degrees QTcB Int : 409 ms Sinus bradycardia T wave abnormality, consider anterolateral ischemia Abnormal ECG When compared with ECG of 29-Mar-2025 08:43, T wave inversion less evident in Anterior leads Confirmed by Grayson Rangel ([id number]) on 03/29/2025 2:40:52 PM Referred By: REFERRED SELF Confirmed By: Grayson Rangel
--- NOTE | 2025-03-29 17:27 | Billing Data ---
Date of Service March 29, 2025 Coding Level of Care Code 41864 SUB INP/OBS CARE
--- NOTE | 2025-03-30 06:51 | Hospitalist Progress Note ---
Date of Service March 30, 2025 Assessment & Plan (1) Midsternal chest pain: (2) Cigarette smoker one half pack a day or less: (3) Elevated troponin: (4) Bradycardia with 41-50 beats per minute: (5) SVT (supraventricular tachycardia): (6) NSTEMI (non-ST elevated myocardial infarction): Plan 40 y/o male with PMHx opioid use disorder on buprenorphine, presents with recurrent chest pain: #NSTEMI: Serial EKGs initially without ischemic changes - repeat EKG 12/3 AM d/t chest pain demonstrated T-wave inversions/biphasic T-waves in anterolateral leads Trop initially peaked at 64, stat repeat following recurrence of chest pain 12 CTA chest noted calcified plaque within LAD with diminished contrast distal to plaque Cardiology consulted - s/p cardiac cath: notable for 90+% early-mid LAD stenosis and PCI w/ placement of EVONNE Continue DAPT with aspirin and Prasugrel for at least 1 year Start atorvastatin 80mg/d Start valsartan 80mg/d Beta james deferred due to bradycardia Nitro PRN for acute chest pain EKG PRN for acute chest pain #Sinus bradycardia // #SVT // #Wide complex tachycardia: All noted at different times during previous hospital stay Overnight telemetry reviewed, notable for sinus bradycardia with frequent PVCs - no SVT or VT - suspect brief runs of VT may have stemmed from ischemia - SVT more likely a separate and distinct problem - consider outpatient cardiac event monitor #OUD: Continue buprenorphine VTE ppx: immediate chemical ppx deferred in periprocedural setting, anticipate discharge tomorrow but will start lovenox if hospital stay extended Diet: Admission and Anticipated Discharge Date Admission Date: March 28, 2025 Subjective Patient has continued to have chest pain - overnight, reports constant baseline 2/10 pain with periodic exacerbations. Responsive to nitro each time. Overnight tele monitor notable for sinus bradycardia with frequent PVCs. Review of Systems Review of Systems: as per HPI Physical Exam Physical Exam: Constitutional: no acute distress HEENT: NCAT, no conjunctival injection CV: RRR, extremities well-perfused, no LE edema Resp: lungs clear to auscultation, no increased work of breathing GI: nondistended MSK: no gross deformities Skin: warm, dry, no rash appreciated Neuro: alert, oriented, no focal neurologic deficit appreciated Results & Data Results & Data Vital Signs (Past 12 Hours) Vital Signs Temp Pulse Pulse Resp BP Pulse Ox O2 Del Method 03/30/25 06:10 45 L 14 118/64 95 Room Air 03/30/25 06:07 28 L 03/30/25 03:45 36.6 C 51 L 18 110/57 L 96 Room Air 03/29/25 23:25 36.7 C 44 L 18 112/70 97 Room Air 03/29/25 21:37 45 L 03/29/25 19:45 37.0 C 64 18 149/83 H 97 Room Air
[2025-03-30 08:26] VITALS: PULSE 69; RESP 18; TEMP 98.8; O2SAT 94
[2025-03-30] MEDS: VALSARTAN 80 MG TAB PO SCH (09:29)
[2025-03-30] MEDS: PRASugrel TAB 10 MG TAB PO SCH (09:29)
[2025-03-30] MEDS: ATORVASTATIN 40 MG TAB PO SCH (09:30)
[2025-03-30 09:44] VITALS: BP 170/84
[2025-03-30] MEDS ORDERED: Nursing to Pharmacy Communication SCH (09:45)
--- NOTE | 2025-03-30 10:45 | Cardiology Progress Note ---
Date of Service March 30, 2025 Assessment & Plan (1) CAD (coronary artery disease): Plan: ACS 90%+ LAD post EVONNE 03/2025. No significant known culprit disease 2. Sinus bradycardia 3. Paroxysmal SVT/PVCsnotably triggered by periods of ischemia during cath 4. DyslipidemiaLDL 118 5. Family history of premature CADfather fatal [place] 52 6. Suspected sleep apnea 7. Prior tobaccoquit 02/2025 Feeling well today. No recurrent angina Asymptomatic sinus bradycardia overnight No signs of heart failure access site complications on exam today. From a cardiac standpoint he is doing well and okay with discharge this morning. Ongoing DAPT with aspirin, prasugrel Continue current statin, ARB. We again discussed importance of complete smoking cessation, dietary modification. Consider outpatient sleep study Will arrange follow-up with me in 1 to 2 weeks. Unlikely to want cardiac rehab but will discuss further at follow-up. Admission and Anticipated Discharge Date Admission Date: March 28, 2025 Subjective Feeling much improved today. No recurrence of prior chest pain. Up walking around room and halls without symptoms. Telemetry reviewedsinus bradycardia to 30s overnight. Had some bigeminy yesterday evening. No additional ectopy. Review of Systems Review of Systems: All systems reviewed & are unremarkable except as noted in HPI & below Physical Exam Physical Exam: General: Comfortable HEENT: Sclerae anicteric Lungs: Clear to auscultation bilaterally, no crackles or wheezes Cardiac: Regular rate and rhythm, no murmurs. Vascular: Right radial artery access site with no ecchymosis, hematoma. Distal pulse and sensation intact. Abdomen: Soft, nontender Extremities: Well perfused, no peripheral edema Neuro: Nonfocal Psych: Alert orient x3, normal affect and mood Results & Data Vital Signs (Past 12 Hours) Vital Signs Temp Pulse Pulse Resp BP BP Pulse Ox 03/30/25 10:31 98.8 F 69 18 155/86 H 170/84 H 94 03/30/25 09:43 98.8 F 69 18 155/86 H 170/84 H 94 03/30/25 08:25 98.8 F 69 18 155/86 H 94 03/30/25 07:04 38 L 03/30/25 06:10 45 L 14 118/64 95 03/30/25 06:07 28 L 03/30/25 03:45 97.9 F 51 L 18 110/57 L 96 03/29/25 23:25 98.1 F 44 L 18 112/70 97 O2 Del Method 03/30/25 10:31 03/30/25 09:43 03/30/25 08:25 Room Air 03/30/25 07:04 03/30/25 06:10 Room Air 03/30/25 06:07 03/30/25 03:45 Room Air 03/29/25 23:25 Room Air PG Care Time/CCT Total # of Minutes Spent Total Time Spent with Patient: Total time spent is greater than 50% in coordination of care (as documented) at patient's floor/unit and/or counseling patient: Coding Level of Care Code 42107 SUB INP/OBS CARE 2/35MIN Diagnoses CAD (coronary artery disease) I25.10
--- NOTE | 2025-03-30 11:56 | Discharge Summary ---
Date of Service March 30, 2025 Admission HPI Per Admitting Provider 40 y/o male with PMHx opioid use disorder on buprenorphine, presents with chest pain. Has been experiencing intermittent, sharp substernal chest pain lasting 1- 5 minutes at a time for the past month. Random onset, not exertionally correlated. Chest pain accompanied by shortness of breath and diaphoresis. Also generalized fatigue. FHx notable for VA in father in his mid-50s. Patient is a chronic tobacco user, also drinks 2-4 monster energy drinks per day. Patient recently admitted a few days ago, left AMA - during that time, noted to have intermittent sinus bradycardia, SVT, and brief runs of VT. Also in the past month, has been alerted by his smart watch of HR dipping as low as high 30s. Occasionally has palpitations as well. All symptoms developed over the past month - prior to that, denies cardiac sx. Admission Exam Per Admitting Provider Constitutional: no acute distress HEENT: NCAT, no conjunctival injection CV: RRR, extremities well-perfused, no LE edema Resp: lungs clear to auscultation, no increased work of breathing GI: nondistended MSK: no gross deformities Skin: warm, dry, no rash appreciated Neuro: alert, oriented, no focal neurologic deficit appreciated Principal Diagnosis NSTEMI Discharge Exam Constitutional: no acute distress HEENT: NCAT, no conjunctival injection CV: RRR, extremities well-perfused, no LE edema Resp: lungs clear to auscultation, no increased work of breathing GI: nondistended MSK: no gross deformities Skin: warm, dry, no rash appreciated Neuro: alert, oriented, no focal neurologic deficit appreciated Discharge Data Allergies Allergy/AdvReac Type Severity Reaction Status Date / Time No Known Allergies Allergy Verified 03/27/25 09:46 Consultations 03/28/25 12:47 ED Decision to Admit Stat 03/28/25 14:06 Consult Cardiology Routine Procedures Performed Operation Date: 03/29/25 10:30 Actual Procedures p Cineradiography w/Routine Exam - Darren Barahona MD p Cath, Left with Cors and Vent - Darren Barahona MD p Drug Eluting Stent SGl Vessel - Darren Barahona MD s POBA each ADDTL Vessel - Darren Barahona MD s IVUS Coronary Single Vessel - Darren Barahona MD Ordered Studies 03/28/25 10:58 CT angio chest PE protocol Stat 03/29/25 11:07 CL Cath Imgs for PACS use only Routine Hospital Course (1) NSTEMI (non-ST elevated myocardial infarction): (2) Midsternal chest pain: (3) Cigarette smoker one half pack a day or less: (4) Elevated troponin: (5) Bradycardia with 41-50 beats per minute: (6) SVT (supraventricular tachycardia): Plan 40 y/o male with PMHx opioid use disorder on buprenorphine, presents with recurrent chest pain: #NSTEMI: Serial EKGs initially without ischemic changes - repeat EKG 12/3 AM d/t chest pain demonstrated T-wave inversions/biphasic T-waves in anterolateral leads Trop peaked at 64 CTA chest noted calcified plaque within LAD with diminished contrast distal to plaque Cardiology consulted - s/p cardiac cath: notable for 90+% early-mid LAD stenosis and PCI w/ placement of EVONNE Continue DAPT with aspirin and Prasugrel for at least 1 year Continue atorvastatin 80mg/d Continue valsartan 80mg/d Beta james deferred due to bradycardia #Sinus bradycardia // #SVT // #Wide complex tachycardia: All noted at different times during previous hospital stay Overnight telemetry reviewed, notable for sinus bradycardia with frequent PVCs - no SVT or VT during this hospital stay - suspect brief runs of VT may have stemmed from ischemia - SVT more likely a separate and distinct problem - consider outpatient cardiac event monitor #OUD: Continue buprenorphine Total Time Total Time Spent Total Time Spent (In Minutes): less than 30 Discharge Plan Discharge Items Patient Disposition: Home - Self-Care Reason For Visit: CHEST PAIN Discharge Diagnosis: NSTEMI Activity: As commented below Activity Comment: activity progression as tolerated Non-emergency contact: Primary Care Provider and Cnc Mill Programmer Call non-emergency contact if: you have any medication questions and your symptoms worsen Follow-up/Referrals: Gladys Matthews CRNP [Primary Care Provider] - 04/10/25 10:30 am (Hospital follow up appointment on April 10 at 10:30 am.) Diet: Heart Healthy Addtl Attending Provider Instructions: You were admitted with chest pain and were found to have a blockage in one your coronary arteries. You had a stent placed to help restore blood flow. You were started on several medications, please see below. Broadly speaking, it is critical that you remain on these medications senior care in order to decrease your risk for further cardiovascular events. Please follow up with your primary care doctor shortly after discharge and with cardiology as directed. New medications: Atorvastatin: This is a cholesterol lowering medication that also helps stabilize any plaque within the arteries. Please take one tab daily. Notify your doctor if you develop muscle aches as a side effect. Valsartan: This is a blood pressure medication that helps reduce the strain on your heart. Please continue to take this once daily. Notify your doctor if you feel lightheaded or dizzy, as this may be a sign of excessively low blood pressure. Aspirin and Prasugrel: Please take each once daily. This are antiplatelet medications that essentially help prevent clots from sticking to and blocking the stent that was placed. Cardiology will determine the length of treatment, but patients are typically on 2 antiplatelet medications for the first year, and then transitioned to a single medication thereafter. Being on these medications does increase risk for bleeding - if you have any minor cuts, nosebleeds, etc., apply direct pressure for 10-15 minutes. Lifestyle modification is also an important aspect of reducing your risk for recurrent cardiovascular events. Broadly speaking, a Mediterranean diet is best shown to offer heart protection. Components of this include: - Cutting back on how much saturated fat and cholesterol you eat - Cutting back on how much salt (sodium) you eat, especially if you have high blood pressure - Eating more fresh vegetables and fruits - Eating lean proteins such as fish, poultry, beans, and peas, and eating less red meat and processed meats - Using low-fat dairy products - Limiting how many sweets and processed foods such as chips, cookies, and baked goods you eat - Limiting how often you eat out. And when you do eat out, making better food choices. Not eating fried or greasy foods, or foods high in saturated fat After you have been cleared by cardiology, daily aerobic exercise of 20-30 m inutes is another way to reduce your cardiovascular risk. Pending Studies at Discharge: No Stand-Alone Forms: My [facility] [email or web address], Smoking Cessation Medications and DC Order Prescriptions: New atorvastatin 40 mg Tablet 80 mg PO QAM 30 Days Qty: 60 0RF valsartan [Diovan] 80 mg Tablet 80 mg PO QAM 30 Days Qty: 30 0RF aspirin 81 mg Tablet,Delayed Release (Dr/Ec) 81 mg PO QAM 30 Days Qty: 30 0RF prasugrel HCl 10 mg Tablet 10 mg PO QAM 30 Days Qty: 30 0RF Continued buprenorphine HCl 8 mg Tablet, Sublingual 8 mg SUBLINGUAL DAILY Discharge Orders: Discharge Order (Routine); Ordered 03/30/25 Ordered By: Breezy Vargas Admission Data Admit Date/Time: 03/28/25 13:32 Attending Provider: Mason Lara Admit Provider: Breezy Vargas Primary Care Provider: Gladys Matthews Other Providers: Mason Lara; Reid Reed; Grayson Rangel; Richard Bowles; Edin Fong; Ricky Sam Jr; Michael Levin; Anaya Perez; Kasey Duff; Darren Barahona; Darren Meza; Marya Torres; Edis Urena; Staci Alvares; Edis Cohen; Brant Lu; Curtis Palmer; Dustin Polk; Bassem Coyne; Lucy Westbrook; Carli Padilla Other Interventions: Discharge Summary Assessment (RN) Last Done: 03/30/25 10:31 Supervising Physician Co-Signing Physician Notes I personally examined the patient and verified all danielson points of history and exam, discussed case, and agree with decision making with Dr Vargas Feels good, no complaints, feels up to going home. Vitals noted, in general he is awake and alert pleasant no distress. HEENT normocephalic atraumatic mucous membranes moist. Breathing unlabored no accessory muscle use good effort. Skin without rashes pallor or icterus. Neuro without focal deficits. Coronary artery disease/unstable angina/NSTEMIstatus post cath and stenting. Med management, lifestyle change, secondary risk reduction. R eiterated lifestyle discussions, and discussed medications medby-med. Discussed critical importance of lifelong tobacco cessation now. SVTprobably was having SVT precipitating ischemia that led to the VT as far as his cascade of symptoms over the weekend. Now with stenting and no other significantly tight lesions, the SVT will be less dangerous, but obviously still could be problematic. Ongoing EP evaluation as an outpatient. otherwise as above Safe/stable for home Resident Activity Tracking Resident Involvement: Resident Care Provided Care Provided: Adult Hospital Medicine
--- NOTE | 2025-03-30 13:05 | Billing Data ---
Date of Service March 30, 2025 Coding Level of Care Code 53900 IN/OBS DISCH 30 MIN/LESS
[2025-03-30] MEDS ORDERED: ENOXAPARIN INJ 40 MG/0.4 ML SYR SQ SCH (21:00)
== END 2025-03-30 10:36 | disposition home or self-care (01) | DRG 322 ==
LOC: ED 10:42 → 2E 13:32
DX: E78.5 Hyperlipidemia, unspecified; Z79.891 Long term (current) use of opiate analgesic; I47.10 Supraventricular tachycardia, unspecified; I21.4 Non-ST elevation (NSTEMI) myocardial infarction; Z87.891 Personal history of nicotine dependence; G47.30 Sleep apnea, unspecified; Z82.49 Family history of ischemic heart disease and other diseases of the circulatory system

== ENCOUNTER 2025-04-11 11:45 | Observation (INO) ==
[2025-04-11] MEDS: NITROGLYCERIN SL 0.4 MG/TAB TAB SL PRN (12:02)
[2025-04-11] MEDS: MoRPHine SULFATE 4 MG/ML 1 ML CARP\\VIAL IV STA ×2 (12:03→13:57)
[2025-04-11] MEDS: SODIUM CHLORIDE 0.9% 500 ML IV STA (12:03)
--- NOTE | 2025-04-11 12:09 | Emergency Department Note ---
Impression & Plan Severe uncontrolled hypertension, Chest pain, CAD (coronary artery disease), Tobacco abuse ED Provider Note NAME: RADHA PEÑA AGE: 40 SEX: M : 1985 ARRIVES VIA: Walk-In INFORMANT: Patient, ED PROVIDER(S): Vern Landin MD CHIEF COMPLAINT: Chest pain, shortness of breath MEDICAL DECISION MAKING: Patient presents with the above. Patient did have a recent LAD stent placed at the beginning of March. IV was established and blood work was obtained. Initial EKG does not show evidence of obvious ischemia. Patient was ordered IV fluids and 243 mg of aspirin. Patient states that he took his morning medications. Patient was ordered nitro sublingual and IV morphine. The patient was noted to be hypertensive. The patient upon reassessment felt improved. The patient's blood work shows a normal white count hemoglobin and platelet count. Kidney function is unremarkable. BSG 127. Initial troponin negative. Repeat EKG obtained and unremarkable. Given the patient's recent stent and known CAD at a young age with significant hypertension to believe the patient would benefit from admission at this time. Patient was still having some pains and was given IV morphine but the patient's EKG does not show signs of acute ischemia and has a negative troponin. I did speak with Dr. Brito and the patient was admitted to the medicine service. Discussion w/ other healthcare providers: Dr. Brito inpatient medicine service Prior /Outside records reviewed: None Differential diagnosis: Cardiac ischemia, aortic dissection, pulmonary embolism, pneumothorax, pneumonia, pericarditis, myocarditis, GERD, cholecystitis, pancreatitis, musculoskeletal, as well as other pathologies were considered. Diagnostics, as interpreted by me: ECG: Sinus tachycardia, rate of 118, normal intervals, normal axis no ST elevations. Repeat EKG interpreted by myself Sinus bradycardia, rate of 56, normal intervals, normal axis no ST elevations. Cardiac monitoring: An order was placed for continuous cardiac monitoring. The monitor shows a rate of 108 with tachycardic and regular rhythm. Patient was placed on pulse oximetry Medical decision rules: None Imaging studies: I informally interpreted the patient's chest x-ray does not show obvious pneumonia or pneumothorax with formal report to follow. HPI: Patient presents due to concern for chest pain and shortness of breath. Patient reports that his pain began around 3 PM yesterday. It has gotten progressively worse. He denies any recent falls or trauma. No cough or fever. Patient reports that the chest pain is centralized and nonradiating but does complain of some left shoulder and arm tingling. He states this feels similar when he did require his prior cardiac stent. He states he has had associated shortness of breath. No leg swelling or calf pain. He reports compliant with his medications and did take his morning meds. He was recently seen at his PCPs office and was uptitrated on his valsartan from 80 mg to 160 mg. Patient denies any cough or fever. He denies any diaphoresis or nausea vomiting. He is accompanied by his significant other. PAST MEDICAL HISTORY: See Below PAST SURGICAL HISTORY: See Below SOCIAL HISTORY: See Below HOME MEDICATIONS: See Below ALLERGIES: See Below VITALS: See Below PHYSICAL EXAMINATION: GENERAL: Anxious in appearance but nontoxic. EYE EXAM: Normal conjunctiva. PERRL, no anisocoria and EOM's grossly intact w/o pain. OROPHARYNX: Moist mucus membranes, grossly normal dentition. NECK: Trachea midline, no stridor. LUNGS: Clear to auscultation. Normal chest wall mechanics. HEART: Tachycardic and regular, no MRG. ABDOMEN: Abdomen soft, non-tender, no masses, no rebound or guarding. SKIN: No rashes and no bruising. UPPER EXTREMITIES: Upper extremities are grossly normal. LOWER EXTREMITIES: Grossly normal, no edema. Negative Homans' sign bilaterally. NEURO EXAM: Awake and alert, follows commands, no obvious facial asymmetry, normal speech, moves all 4 extremities. Past Med/Surg History Problem List (Updated 04/11/25 @ 15:58 by Vern Landin MD) Tobacco abuse (Acute) Severe uncontrolled hypertension (Acute) Opioid dependence Hypertension CAD (coronary artery disease) (Acute) Chest pain (Acute) NSTEMI (non-ST elevated myocardial infarction) (Acute) Syncope SVT (supraventricular tachycardia) Cigarette smoker one half pack a day or less Bradycardia with 41-50 beats per minute Elevated troponin (Acute) Midsternal chest pain (Acute) Medical History Chronic left hip pain Low testosterone Surgical History Hx of cardiac cath History of heart artery stent No significant past surgical history Family History Mother Myocardial infarction Father Hip dysplasia Hypertension Alzheimer disease Uncle Diabetes Grandfather (Paternal) Alzheimer disease Denies family history of Ovarian cancer Prostate cancer Breast cancer Colorectal cancer Social History Smoking Status: Current every day smoker Tobacco Type: Cigarettes Age Started Using Tobacco: 18; Age Quit Using Tobacco: 40; packs per day: 0.5; Hx Alcohol Use: No Hx Substance Use: No Preferred Language: [place] Communication Ability: Effective 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 Rental Agency 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 Required: No Beliefs That Will Affect Care: None marital status: Life Partner Current Living Situation: Spouse current occupational status: employed 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 Feels Safe at Home: Yes Childhood Exposure to Second-Hand Smoke: Yes Dental Care, Regularly: Yes Physical Activity Frequency: 3-4 Times per Week Seatbelt Use: always Sunscreen Use: Yes Allergies Allergies Allergy/AdvReac Type Severity Reaction Status Date / Time No Known Allergies Allergy Verified 04/03/25 10:41 Home Meds Home Medications Medication Instructions Recorded Confirmed buprenorphine HCl 8 mg sublingual 8 mg sublingual DAILY 03/25/25 04/11/25 tablet magnesium oxide 500 mg PO DAILY 03/31/25 04/11/25 multivitamin (One-A-Day Essential 1 tab PO DAILY 03/31/25 04/11/25 tablet) Previous Rx's Medication Instructions Recorded aspirin 81 mg tablet,delayed 81 mg PO QAM 30 days #30 tabs 03/30/25 release prasugrel HCl 10 mg tablet 10 mg PO QAM 30 days #30 tabs 03/30/25 atorvastatin 80 mg tablet 80 mg PO DAILY #90 tabs 04/03/25 valsartan 160 mg tablet 160 mg PO DAILY #30 tabs 04/03/25 Results & Data (ED) Vital Signs Vital Signs - 24 hr 04/11/25 11:50 04/11/25 11:58 04/11/25 11:58 Temperature 36.9 C Temperature Source Oral Pulse Rate 80 Pulse Rate [Apical] Respiratory Rate 17 Respiratory Effort / Characteristics Respiratory Depth Respiratory Pattern Blood Pressure 199/106 H Blood Pressure [Right Arm] Blood Pressure Mean 137 Blood Pressure Mean [Right Arm] Pulse Oximetry 97 98 98 Oxygen Delivery Method Room Air Room Air Room Air Sepsis Recent Fever Within 48 Hours No Sepsis New/Unexplained Change in Mental Status N/A Sepsis Action Taken by Nursing No Action Required 04/11/25 12:49 04/11/25 14:00 04/11/25 15:12 Temperature Temperature Source Pulse Rate 61 Pulse Rate [Apical] 62 52 L Respiratory Rate 16 18 Respiratory Effort / Characteristics Non-Labored Spontaneous Respiratory Depth Normal Respiratory Pattern Regular Blood Pressure Blood Pressure [Right Arm] 136/89 145/55 H Blood Pressure Mean Blood Pressure Mean [Right Arm] 104 85 Pulse Oximetry 97 97 Oxygen Delivery Method Room Air Room Air Sepsis Recent Fever Within 48 Hours Sepsis New/Unexplained Change in Mental Status Sepsis Action Taken by [facility] Medications Current Medication List: was personally reviewed by me Laboratory Data Attestation: I reviewed the patient's lab results. 04/11/25 12:00 04/11/25 12:00 Lab Results 04/11/25 04/11/25 Range/Units 12:00 14:41 WBC 8.67 (4.8-10.8) K/ul RBC 5.26 (4.70-6.10) M/uL Hgb 16.0 (14.0-18.0) g/dL Hct 44.7 (42.0-52.0) % MCV 85.0 (80.0-100.0) fL MCH 30.4 (25.0-34.0) pg MCHC 35.8 (32.0-36.0) g/dL RDW Std Deviation 37.2 (36.4-46.3) fL RDW Coeff of Bteh 12.2 (11.5-14.5) % Plt Count 234 (130-400) K/uL MPV 9.6 (9.4-12.4) fL Immature Gran % (Auto) 0.2 % Neut % (Auto) 56.9 % Lymph % (Auto) 34.1 % [place] % (Auto) 6.3 % Eos % (Auto) 1.7 % Baso % (Auto) 0.8 % Neut # (Auto) 4.92 (1.40-6.50) K/uL Lymph # (Auto) 2.96 (1.20-3.40) K/uL [place] # (Auto) 0.55 (0.11-0.59) K/uL Eos # (Auto) 0.15 (0.00-0.50) K/uL Baso # (Auto) 0.07 (0.00-0.20) K/uL Immature Gran # (Auto) 0.02 (0.01-0.20) K/uL PT 11.6 (9.0-12.0) Seconds INR 1.1 (0.9-1.1) APTT 27 (21-31) Seconds PTT Ratio 1.0 Sodium 139 (136-145) mmol/L Potassium 3.5 (3.5-5.1) mmol/L Chloride 104 (98-107) mmol/L Carbon Dioxide 21 (21-32) mmol/L Anion Gap 14 H (3-11) BUN 19 (6-23) mg/dl Creatinine 1.13 (0.6-1.4) mg/dl Est Cr Clr Drug Dosing 110.4 ml/min eGFR 85.32 BUN/Creatinine Ratio 16.8 (10-20) Glucose 127 H (70-99(Fasting)) mg/dl Calcium 10.1 (8.6-10.3) mg/dl Total Bilirubin 1.0 (0.2-1.0) mg/dl AST 26 (13-39) U/L ALT 26 (7-52) U/L Alkaline Phosphatase 60 (34-104) U/L Troponin I High Sens 4.8 7.8 (0-20) pg/ml Total Protein 8.2 (6.0-8.3) gm/dl Albumin 4.7 (3.4-5.0) gm/dl Globulin 3.5 (2.5-4.0) gm/dl Albumin/Globulin Ratio 1.3 (0.9-2) Lipase 11 (11-82) U/L Administered Medications Nitroglycerin (Nitroglycerin Sl 0.4 Mg/Tab Tab) 0.4 mg SL Q5M PRN PRN Reason: Chest Pain Stop: 05/11/25 11:57 Last Admin: 04/11/25 12:02 Dose: 0.4 mg Documented By: MMF Discontinued Medications Aspirin (Aspirin Chew 324 Mg) 243 mg PO NOW STA Stop: 04/11/25 12:10 Last Admin: 04/11/25 12:19 Dose: 243 mg Documented By: amg Sodium Chloride (Nss) 500 mls @ 999 mls/hr IV .Q31M STA Stop: 04/11/25 12:26 Last Infusion: 04/11/25 12:33 Dose: Infused Documented By: aly Admin: 04/11/25 12:03 Dose: 999 mls/hr Documented By: MARILU Morphine Sulfate (Morphine Sulfate 4 Mg/Ml 1 Ml Carp\Vial) 4 mg IV NOW STA Stop: 04/11/25 11:59 Last Admin: 04/11/25 12:03 Dose: 4 mg Documented By: MMF Morphine Sulfate (Morphine Sulfate 4 Mg/Ml 1 Ml Carp\Vial) 4 mg IV NOW STA Stop: 04/11/25 13:37 Last Admin: 04/11/25 13:57 Dose: 4 mg Documented By: aly Nitroglycerin (Nitroglycerin Sl 0.4 Mg/Tab Tab) 0.4 mg SL NOW STA Stop: 04/11/25 14:34 Last Admin: 04/11/25 15:39 Dose: 0.4 mg Documented By: FREDA Imaging Data Radiologist's Impression: Chest X-Ray 04/11/25 11:50 XR chest 1V portable CLINICAL HISTORY: Chest pain, nonspecific COMPARISON STUDY: Chest radiograph and chest CT March 28, 2025. FINDINGS: Lung volumes are normal. Lungs are clear. There is no pneumothorax or pleural effusion. Cardiac size is normal. Mediastinal contours are normal. There is no evidence for pulmonary edema. IMPRESSION: No acute cardiopulmonary findings. ACT 112: Negative or not required by law. Electronically signed by: Wili Rodriguez M.D. 04/11/2025 12:28 PM Discharge Plan Visit Data Chief Complaint: Chest Pain Stated Complaint: CHEST PAIN ED Provider: Vern Landin Discharge Problem: Severe uncontrolled hypertension, Chest pain, CAD (coronary artery disease), Tobacco abuse Patient Disposition: Admitted As Inpatient Condition: Good Forms Stand Alone Forms: My [facility] Prescriptions Prescriptions: No Action atorvastatin 80 mg tablet 80 mg PO DAILY Qty: 90 3RF valsartan 160 mg tablet 160 mg PO DAILY Qty: 30 2RF multivitamin [One-A-Day Essential] Tablet 1 tab PO DAILY magnesium oxide 500 mg magnesium tablet 500 mg PO DAILY buprenorphine HCl 8 mg Tablet, Sublingual 8 mg SUBLINGUAL DAILY aspirin 81 mg Tablet,Delayed Release (Dr/Ec) 81 mg PO QAM 30 Days Qty: 30 0RF prasugrel HCl 10 mg Tablet 10 mg PO QAM 30 Days Qty: 30 0RF Referrals Referrals: Gladys Matthews CRNP [Primary Care Provider] - Discharge Problem: Chest pain Qualifiers: Chest pain type: unspecified Qualified Code(s): R07.9 - Chest pain, unspecified CAD (coronary artery disease) Qualifiers: Coronary Disease-Associated Artery/Lesion type: [place] artery [place] vs. transplanted heart: [place] heart Associated angina: unspecified whether angina present Qualified Code(s): I25.10 - Atherosclerotic heart disease of [place] coronary artery without angina pectoris
[2025-04-11 12:15] LABS: Hematocrit (blood only) 44.7 % (42.0-52.0); Hemoglobin 16.0 g/dL (14.0-18.0); Immature Granulocytes # (auto) 0.02 K/uL (0.01-0.20); Immature Granulocytes % (auto) 0.2 %; Mean Corpuscular Hemoglobin 30.4 pg (25.0-34.0); Mean Corpuscular Volume 85.0 fL (80.0-100.0); Platelet Count 234 K/uL (130-400); RDW Standard Deviation 37.2 fL (36.4-46.3); Red Blood Count 5.26 M/uL (4.70-6.10); White Blood Count 8.67 K/ul (4.8-10.8)
[2025-04-11] MEDS: ASPIRIN CHEW 324 MG PO STA (12:19)
--- NOTE | 2025-04-11 12:29 | XRay Report ---
XR chest 1V portable CLINICAL HISTORY: Chest pain, nonspecific COMPARISON STUDY: Chest radiograph and chest CT March 28, 2025. FINDINGS: Lung volumes are normal. Lungs are clear. There is no pneumothorax or pleural effusion. Car diac size is normal. Mediastinal contours are normal. There is no evidence for pulmonary edema. IMPRESSION: No acute cardiopulmonary findings. ACT 112: Negative or not required by law. Electronically signed by: Wili Rodriguez M.D. 04/11/2025 12:28 PM
[2025-04-11 12:37] LABS: Alanine Aminotransferase 26.0 U/L (7-52); Albumin Globulin Ratio 1.3 (0.9-2); Albumin Level 4.7 gm/dl (3.4-5.0); Alkaline Phosphatase 60.0 U/L (34-104); Anion Gap 14.0 (3-11); Bilirubin,Total 1.0 mg/dl (0.2-1.0); Blood Urea Nitrogen 19.0 mg/dl (6-23); Calcium 10.1 mg/dl (8.6-10.3); Carbon Dioxide 21.0 mmol/L (21-32); Chloride 104.0 mmol/L (98-107); Creatinine Clr Calc Pharmacy 110.4 ml/min; Globulin 3.5 gm/dl (2.5-4.0); Glucose 127.0 mg/dl (70-99(Fasting)); Lipase 11.0 U/L (11-82); Potassium 3.5 mmol/L (3.5-5.1); Sodium 139.0 mmol/L (136-145); Total Protein 8.2 gm/dl (6.0-8.3)
[2025-04-11 12:42] LABS: INR 1.1 (0.9-1.1); Partial Thromboplastin Time 27 Seconds (21-31); Prothrombin Time 11.6 Seconds (9.0-12.0)
--- NOTE | 2025-04-11 14:14 | History & Physical Report ---
Date of Service April 11, 2025 Assessment & Plan (1) Chest pain: (2) CAD (coronary artery disease): (3) Hypertension: (4) SVT (supraventricular tachycardia): Plan Pt is a 40 yo male with a past medical hx of recent LAD stent and LAD thrombus noted on 03/29, HTN, hx bradycardia, and hx SVT who presents to the hospital on 04/11 for recurrent episodes of chest pain. #Chest pain - with associated SOB, fatigue, palpitations and tachycardia per pt - recent cardiac cath on 03/29 with LAD stent placement - trop negative x2 - given 4mg x2 doses of morphine and dose of nitro with some reduction in pain, trial of another dose of nitro SL as BP permits - as symptoms are episodic and do not seem to correlate with activity, question if he is getting symptoms more from paroxysmal SVT/arrhythmia and will monitor on PCU overnight - will do limited echo for wall motion - cards consulted #CAD #Recent LAD stent - continue home DAPT - continue statin #HTN-BPs quite elevated on arrival, improved with nitroglycerin and morphine - continue valsartan #Opioid dependence - takes buprenorphine at home - given opioids for pain control in the ED and nitro so will hold today - can restart tomorrow VTE ppx: lovenox SQ History of Present Illness Chief Complaint: Chest pain, recent stent Primary Care Provider: IRVING Earl Pt is a 40 yo male with a past medical hx of recent LAD stent and LAD thrombus noted on 03/29, HTN, hx bradycardia, and hx SVT and opioid dependence on buprenorphine who presents to the hospital on 04/11 for recurrent episodes of chest pain with recent stent. Pt states that symptoms before his cath on the 03/29 were episodes of chest pain with associated SOB and sometimes feeling faint. He states that episodes would come and go and were not exertional in nature. He states that since his cath he has started to have episodes again of chest pain with SOB, diaphoresis and feeling faint along with feeling tachycardic with palpitations. He states he at times has SOB and diaphoresis with conversations. He states that yesterday around 1pm he started to feel shaky, diaphoretic and with sharp substernal chest pain and feeling like his heart was racing. He states he was on his way home from work and started to feel faint as well. He states once he got home he went to bed and felt entirely exhausted and went to bed and slept from 3pm until 10am this morning. He also notes poor appetite since his cath. He states all he ate last night for dinner was some oranges before going back to sleep. He states he "feels like his artery is blocked up again" as he feels exactly as he felt prior to his cath. He was given morphine and nitro and states he is still having 5/10 chest pain. He states he did do cocaine 10 years ago but not since. Denies drug use otherwise. He smokes 1/2 ppd (was smoking 1 ppd prior to his cath). Family hx; his dad at age 52 of an [place]. His mom had 3 stents with the first one in her 50s. Allergies Allergy/AdvReac Type Severity Reaction Status Date / Time No Known Allergies Allergy Verified 04/03/25 10:41 Home Medications Medication Instructions Recorded Confirmed Type buprenorphine HCl 8 mg sublingual 8 mg sublingual DAILY 03/25/25 04/11/25 History tablet aspirin 81 mg tablet,delayed 81 mg PO QAM 30 days #30 tabs 03/30/25 04/11/25 Rx release prasugrel HCl 10 mg tablet 10 mg PO QAM 30 days #30 tabs 03/30/25 04/11/25 Rx magnesium oxide 500 mg PO DAILY 03/31/25 04/11/25 History multivitamin (One-A-Day Essential 1 tab PO DAILY 03/31/25 04/11/25 History tablet) atorvastatin 80 mg tablet 80 mg PO DAILY #90 tabs 04/03/25 04/11/25 Rx valsartan 160 mg tablet 160 mg PO DAILY #30 tabs 04/03/25 04/11/25 Rx Past Med/Surg History Problem List Tobacco abuse (Acute) Severe uncontrolled hypertension (Acute) Opioid dependence Hypertension CAD (coronary artery disease) (Acute) Chest pain (Acute) NSTEMI (non-ST elevated myocardial infarction) (Acute) Syncope SVT (supraventricular tachycardia) Cigarette smoker one half pack a day or less Bradycardia with 41-50 beats per minute Elevated troponin (Acute) Midsternal chest pain (Acute) Medical History Chronic left hip pain Low testosterone Surgical History Hx of cardiac cath History of heart artery stent No significant past surgical history Family History Mother Myocardial infarction Father Hip dysplasia Hypertension Alzheimer disease Uncle Diabetes Grandfather (Paternal) Alzheimer disease Denies family history of Ovarian cancer Prostate cancer Breast cancer Colorectal cancer Social History Smoking Status: Current every day smoker Tobacco Type: Cigarettes Age Started Using Tobacco: 18; Age Quit Using Tobacco: 40; packs per day: 0.5; Hx Alcohol Use: Yes Alcohol type: beer Hx Substance Use: No Preferred Language: Yakut Communication Ability: Effective 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 Physical Exam Physical Exam: General: Alert and oriented, no acute distress, HEENT: Normocephalic, moist oral mucosa, Cardio: Regular rate and rhythm, no murmur, Resp: Lungs clear to auscultation b/l, faint wheezes noted in bilateral bases GI: Soft and nontender, nondistended, bowel sounds active Skin: Warm, pink, dry, Results & Data Results & Data Vital Signs (Past 12 Hours) Vital Signs Temp Pulse Pulse Resp BP BP Pulse Ox 04/11/25 14:00 62 16 136/89 97 04/11/25 12:49 61 04/11/25 11:58 98 04/11/25 11:58 98 04/11/25 11:50 36.9 C 80 17 199/106 H 97 O2 Del Method 04/11/25 14:00 Room Air 04/11/25 12:49 04/11/25 11:58 Room Air 04/11/25 11:58 Room Air 04/11/25 11:50 Room Air Laboratory Results CBC, PT/PTT/INR, CMP, troponin, lipase, urine drug screen reviewed Diagnostic Findings CXR reviewed Chest X-Ray 04/11/25 11:50 XR chest 1V portable CLINICAL HISTORY: Chest pain, nonspecific COMPARISON STUDY: Chest radiograph and chest CT March 28, 2025. FINDINGS: Lung volumes are normal. Lungs are clear. There is no pneumothorax or pleural effusion. Cardiac size is normal. Mediastinal contours are normal. There is no evidence for pulmonary edema. IMPRESSION: No acute cardiopulmonary findings. ACT 112: Negative or not required by law. Electronically signed by: Wili Rodriguez M.D. 04/11/2025 12:28 PM ECG Additional Comments: ECG on 04/11/2025 at 11:47 AM with atrial tachycardia, rate 118, upsloping ST-T segments in inferior leads and ST depression in V2 and V3, changed from previous Repeat ECG on 04/11/2025 at 1355 with sinus bradycardia, rate 56, no ischemic changes Code Status & VTE Plan Code Status Full code VTE Prophylaxis Plan VTE Prophylaxis will be ordered: Yes Supervising Physician Co-Signing Physician Notes I personally examined the patient and verified all danielson points of history and exam, discussed case, and agree with decision making with Dr. Reaves with the following additions/exceptions: S-this patient is a 40-year-old male with a history of recent NSTEMI with LAD stent, SVT, current smoker, who presents with recurrent episodes of heart palpitations, diaphoresis, and chest pain similar to what brought him in for his NSTEMI. He has noticed on his Apple Watch that his heart rate was fast. His symptoms usually resolved within a few minutes but today it lasted longer, Around 5-10 minutes. His ECG in the ED showed sinus versus atrial tachycardia with possible ischemic changes, followed later by an EKG with sinus bradycardia. He was still having ongoing 5/10 chest pain with left arm heaviness while in sinus bradycardia. History and ROS otherwise reviewed as above O- Vitals Reviewed Gen: AAOx3, NAD HEENT: Anicteric sclerae, EOMI CV: Bradycardic, regular rhythm no mgr nl S1S2 Pulm: CTAB no wcr Abd: +BS soft NT ND no masses or hernias Ext: No edema, 2+ DP pulses Skin: No rashes, warm/dry Neuro: Full strength throughout A/P: 40-year-old male with history of severe CAD s/p recent LAD stent, paroxysmal SVT, and current smoker, here with recurrent episodes of SVT versus atrial tachycardia along with angina and left arm heaviness. BPs quite elevated on arrival and improved with nitroglycerin and morphine. Fortunately, thus far troponin is negative x 2, however symptoms only lasted 5 to 10 minutes. Concerned that the tachycardia is causing ischemia - Admit to PCU for arrhythmia monitoring - Keep electrolytes replete-check magnesium level and replete as needed to keep above 2.0 -trend serial troponin - Check limited echo for wall motion abnormalities and EF - Consult cardiology given recent stent placement and symptoms - Caution with beta-blockers as he sometimes has bradycardia as low as the 30s at night when sleeping as per previous hospitalization records-suspect undiagnosed sleep apnea. Resting heart rate in sinus rhythm is bradycardic in the 50s - Continue dual antiplatelet therapy, high intensity statin - Encourage smoking cessation Resident Activity Tracking Resident Involvement: Resident Care Provided Care Provided: Adult Hospital Medicine (1) Chest pain Chest pain type: unspecified Qualified Code(s): R07.9 - Chest pain, unspecified
[2025-04-11] MEDS: NITROGLYCERIN SL 0.4 MG/TAB TAB SL STA (15:39)
[2025-04-11] MEDS ORDERED: MELATONIN 3 MG TAB PO PRN (16:39)
[2025-04-11] MEDS ORDERED: POLYETHYLENE (MIRALAX) 17 GM PACK PO PRN (16:39)
[2025-04-11] MEDS ORDERED: NITROGLYCERIN SL 0.4 MG/TAB TAB SL PRN (16:39)
[2025-04-11] MEDS ORDERED: MoRPHine SULFATE 2 MG/ML CARP IV PRN (16:39)
[2025-04-11] MEDS ORDERED: ACETAMINOPHEN 325 MG TAB PO PRN (16:39)
[2025-04-11] MEDS ORDERED: ONDANSETRON INJ 2 MG/ML 2 ML VIAL IV PRN (16:39)
[2025-04-11 17:13] LABS: Amphetamines+Metham, Urine Neg (Neg); MDMA (Ecstacy), Urine Neg (Neg); Marijuana, Urine Pos (Neg)
--- NOTE | 2025-04-11 17:36 | XCELERA ---
[id number]
[2025-04-11] MEDS: ENOXAPARIN INJ 40 MG/0.4 ML SYR SQ SCH (17:48)
--- NOTE | 2025-04-11 19:06 | Cardiology Consultation ---
Date of Consultation April 11, 2025 Assessment & Plan Plan ACS 90%+ LAD post EVONNE 03/2025. No significant known culprit disease 2. Sinus bradycardia 3. Paroxysmal SVT/PVCsnotably triggered by periods of ischemia during cath 4. DyslipidemiaLDL 118 5. Family history of premature CADfather fatal [place] 52 6. Suspected sleep apnea 7. Prior tobaccoquit 02/2025 History of Present Illness Attending Physician: Ranjana Brito MD History of Present Illness Mr. Gerardo is a very pleasant 40-year-old man with a history of CAD post LAD stenting 2 weeks ago seen today in the setting of recurrent chest pain. Previously presented with several weeks of intermittent sharp substernal chest pain occurring both with rest and exertion. Has never had similar chest symptoms in the past. With current chest pain as noted intermittent dizziness, diaphoresis as well as low heart rates on his smart watch. Was noted during initial hospitalization to have an episode of SVT to the 150s which potentially correlated with chest pain in the ED. The remainder of the time was in sinus bradycardia with intermittent PVCs. Echocardiogram showed preserved LV function with no regional wall motion abnormalities or no valvular pathology. Return to ED with stuttering chest pain, HS TropI trending up to 64. CTA showed LAD calcification. Underwent cardiac catheterization which showed 90+% earlymid LAD stenosis which was treated with single EVONNE (4.0 x 38 mm [place]; postdilated with 4.5 NC with PTCA of jailed second diagonal). Had significant improvement in symptoms post procedure. Discharged on DAPT with aspirin, prasugrel. States that initially was doing very well. And going back to work was doing physical labor including building a porch at his home without any exertional symptoms. Does state has been having some chest feeling/discomfort after meals. Yesterday developed recurrent feeling of lightheaded, diaphoresis and then some chest pain in the evening. Able to go to sleep but woke up this morning diaphoretic and again with chest pain which has persisted from around 10 AM to now. In ED hypertensive to 190s. ECG showed no new ST changes. At bedtime troponin has been negative x 2. Chest x-ray unremarkable. Repeat echo showed preserved LV function with no pericardial effusion. Family history: Father from [place] at age 52. Mother had hypertension and CAD with stents placed in her late 50s. Brother/sister without cardiac issues. 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 Smoked for 20 years, quitting 1 week ago. Allergies Allergy/AdvReac Type Severity Reaction Status Date / Time No Known Allergies Allergy Verified 04/03/25 10:41 Home Medications Medication Instructions Recorded Confirmed Type buprenorphine HCl 8 mg sublingual 8 mg sublingual DAILY 03/25/25 04/11/25 History tablet aspirin 81 mg tablet,delayed 81 mg PO QAM 30 days #30 tabs 03/30/25 04/11/25 Rx release prasugrel HCl 10 mg tablet 10 mg PO QAM 30 days #30 tabs 03/30/25 04/11/25 Rx magnesium oxide 500 mg PO DAILY 03/31/25 04/11/25 History multivitamin (One-A-Day Essential 1 tab PO DAILY 03/31/25 04/11/25 History tablet) atorvastatin 80 mg tablet 80 mg PO DAILY #90 tabs 04/03/25 04/11/25 Rx valsartan 160 mg tablet 160 mg PO DAILY #30 tabs 04/03/25 04/11/25 Rx Patient History Medical History Chronic left hip pain Low testosterone Surgical History Hx of cardiac cath History of heart artery stent No significant past surgical history Family History Mother Myocardial infarction Father Hip dysplasia Hypertension Alzheimer disease Uncle Diabetes Grandfather (Paternal) Alzheimer disease Denies family history of Ovarian cancer Prostate cancer Breast cancer Colorectal cancer Social History Smoking Status: Current every day smoker Tobacco Type: Cigarettes Age Started Using Tobacco: 18; Age Quit Using Tobacco: 40; packs per day: 0.5; Hx Alcohol Use: Yes Alcohol type: beer Hx Substance Use: No Preferred Language: Danish Communication Ability: Effective Supervisor Paper Coating Required: No Beliefs That Will Affect Care: None marital status: Life Partner Current Living Situation: Spouse current occupational status: employed 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 Vascular: 2+ radial, DP pulses. No bruits Abdomen: Soft, nontender Extremities: Well perfused, no peripheral edema Neuro: Nonfocal Psych: Alert orient x3, normal affect and mood Results & Data Vital Signs (Past 12 Hours) Vital Signs Temp Pulse Pulse Resp BP BP Pulse Ox 04/11/25 16:40 98.1 F 53 L 16 155/72 H 99 04/11/25 16:23 48 L 16 143/70 H 95 04/11/25 15:12 52 L 18 145/55 H 97 04/11/25 14:00 62 16 136/89 97 04/11/25 12:49 61 04/11/25 11:58 98 04/11/25 11:58 98 04/11/25 11:50 98.4 F 80 17 199/106 H 97 O2 Del Method 04/11/25 16:40 Room Air 04/11/25 16:23 Room Air 04/11/25 15:12 Room Air 04/11/25 14:00 Room Air 04/11/25 12:49 04/11/25 11:58 Room Air 04/11/25 11:58 Room Air 04/11/25 11:50 Room Air PG Care Time/CCT Total # of Minutes Spent Total Time Spent with Patient: Total time spent is greater than 50% in coordination of care (as documented) at patient's floor/unit and/or counseling patient: Coding
--- NOTE | 2025-04-11 19:07 | Billing Data ---
Date of Service April 11, 2025 Coding Level of Care Code 25267 INT INP/OBS CARE
[2025-04-11 19:22] LABS: Magnesium 2.2 mg/dl (1.7-2.4)
[2025-04-11] MEDS: POTASSIUM CHLORIDE CRTAB 20 MEQ TABCR PO STA (19:41)
--- NOTE | 2025-04-11 22:45 | Electrocardiogram Report ---
Test Reason : Blood Pressure : */* mmHG Vent. Rate : 56 BPM Atrial Rate : 56 BPM P-R Int : 160 ms QRS Dur : 92 ms QT Int : 402 ms P-R-T Axes : 45 42 54 degrees QTcB Int : 387 ms Sinus bradycardia Otherwise normal ECG When compared with ECG of 11-Apr-2025 11:47, Vent. rate has decreased by 62 bpm Confirmed by Michael Levin ([id number]) on 04/11/2025 10:44:46 PM Referred By: REFERRED SELF Confirmed By: Michael Levin
--- NOTE | 2025-04-11 22:45 | Electrocardiogram Report ---
Test Reason : Blood Pressure : */* mmHG Vent. Rate : 118 BPM Atrial Rate : 118 BPM P-R Int : 144 ms QRS Dur : 84 ms QT Int : 296 ms P-R-T Axes : 52 61 67 degrees QTcB Int : 414 ms Sinus tachycardia Otherwise normal ECG When compared with ECG of 29-Mar-2025 12:55, Vent. rate has increased by [address] now depressed in Anterior leads T wave inversion no longer evident in Anterior leads Confirmed by Michael Levin ([id number] on 04/11/2025 10:44:33 PM Referred By: Confirmed By: Michael Levin
--- NOTE | 2025-04-11 23:47 | Cardiology Consultation ---
Date of Consultation April 11, 2025 Assessment & Plan (1) CAD (coronary artery disease): Plan ACS 90%+ LAD post EVONNE 03/2025. No significant known culprit disease 2. Sinus bradycardia 3. Paroxysmal SVT/PVCsnotably triggered by periods of ischemia during cath 4. DyslipidemiaLDL 118 5. Family history of premature CADfather fatal [place] 52 6. Suspected sleep apnea 7. Prior tobaccoquit 02/2025 Post PCI with EVONNE to LAD 2 weeks ago. Here with recurrent chest pain, palpitations and diaphoresis. Has had persistent pain for >6 hours with negative HS TropI x 3. ECG without new ST abnormalities. Has had PVCs and brief periods of bigeminy but no other significant arrhythmia on telemetry. Reviewed repeat echo which shows preserved LV function and no new pericardial effusion. Overall suspicion for recurrent ACS or stent pathology is low. Some component of symptoms seems related to meals and will add PPI and can try antacids. Pain also slightly reproducible with central palpation. Unclear if any relation to more sustained arrhythmias. Event monitor in place (no available data for monitoring company). Also feel there is component of appropriate concern about any chest symptoms after his recent event. Plan: Continue to monitor on telemetry overnight If remains stable overnight do not feel needs repeat catheterization or additional ischemic evaluation. Continue DAPT with aspirin, prasugrel Agree with increased valsartan and statin Start PPI Encouraged smoking cessation. Likely home tomorrow with ongoing ambulatory monitoring. Will reschedule follow-up with me in 2 weeks. History of Present Illness Attending Physician: Ranjana Brito MD History of Present Illness Mr. Gerardo is a very pleasant 40-year-old man with a history of CAD post LAD stenting 2 weeks ago seen today in the setting of recurrent chest pain. Previously presented with several weeks of intermittent sharp substernal chest pain occurring both with rest and exertion. Has never had similar chest symptoms in the past. With current chest pain as noted intermittent dizziness, diaphoresis as well as low heart rates on his smart watch. Was noted during initial hospitalization to have an episode of SVT to the 150s which potentially correlated with chest pain in the ED. The remainder of the time was in sinus bradycardia with intermittent PVCs. Echocardiogram showed preserved LV function with no regional wall motion abnormalities or no valvular pathology. Return to ED with stuttering chest pain, HS TropI trending up to 64. CTA showed LAD calcification. Underwent cardiac catheterization which showed 90+% earlymid LAD stenosis which was treated with single EVONNE (4.0 x 38 mm [place]; postdilated with 4.5 NC with PTCA of jailed second diagonal). Had significant improvement in symptoms post procedure. Discharged on DAPT with aspirin, prasugrel. States that initially was doing very well. And going back to work was doing physical labor including building a porch at his home without any exertional symptoms. Does state has been having some chest feeling/discomfort after meals. Yesterday developed recurrent feeling of lightheaded, diaphoresis and then some chest pain in the evening. Able to go to sleep but woke up this morning diaphoretic and again with chest pain which has persisted from around 10 AM to now. In ED hypertensive to 190s. ECG showed no new ST changes. At bedtime troponin has been negative x 2. Chest x-ray unremarkable. Repeat echo showed preserved LV function with no pericardial effusion. Family history: Father from [place] at age 52. Mother had hypertension and CAD with stents placed in her late 50s. Brother/sister without cardiac issues. 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 Smoked for 20 years, quitting 1 week ago. Allergies Allergies Allergy/AdvReac Type Severity Reaction Status Date / Time No Known Allergies Allergy Verified 04/03/25 10:41 Home Medications Medication Instructions Recorded Confirmed Type buprenorphine HCl 8 mg sublingual 8 mg sublingual DAILY 03/25/25 04/11/25 History tablet aspirin 81 mg tablet,delayed 81 mg PO QAM 30 days #30 tabs 03/30/25 04/11/25 Rx release prasugrel HCl 10 mg tablet 10 mg PO QAM 30 days #30 tabs 03/30/25 04/11/25 Rx magnesium oxide 500 mg PO DAILY 03/31/25 04/11/25 History multivitamin (One-A-Day Essential 1 tab PO DAILY 03/31/25 04/11/25 History tablet) atorvastatin 80 mg tablet 80 mg PO DAILY #90 tabs 04/03/25 04/11/25 Rx valsartan 160 mg tablet 160 mg PO DAILY #30 tabs 04/03/25 04/11/25 Rx Patient History Medical History Chronic left hip pain Low testosterone Surgical History Hx of cardiac cath History of heart artery stent No significant past surgical history Family History Mother Myocardial infarction Father Hip dysplasia Hypertension Alzheimer disease Uncle Diabetes Grandfather (Paternal) Alzheimer disease Denies family history of Ovarian cancer Prostate cancer Breast cancer Colorectal cancer Social History Smoking Status: Current every day smoker Tobacco Type: Cigarettes Age Started Using Tobacco: 18; Age Quit Using Tobacco: 40; packs per day: 0.5; Hx Alcohol Use: Yes Alcohol type: beer Hx Substance Use: No Preferred Language: Colombian Communication Ability: Effective Paper Coating Supervisor Required: No Beliefs That Will Affect Care: None marital status: Life Partner Current Living Situation: Spouse current occupational status: employed 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 Vascular: 2+ radial, DP pulses. No bruits Abdomen: Soft, nontender Extremities: Well perfused, no peripheral edema Neuro: Nonfocal Psych: Alert orient x3, normal affect and mood Results & Data Vital Signs (Past 12 Hours) Vital Signs Temp Pulse Pulse Resp BP BP Pulse Ox 04/11/25 23:00 55 L 04/11/25 22:45 98.1 F 55 L 18 128/70 98 04/11/25 19:56 98.4 F 86 20 144/75 H 96 04/11/25 16:40 98.1 F 53 L 16 155/72 H 99 04/11/25 16:23 48 L 16 143/70 H 95 04/11/25 15:12 52 L 18 145/55 H 97 04/11/25 14:00 62 16 136/89 97 04/11/25 12:49 61 04/11/25 11:58 98 04/11/25 11:58 98 04/11/25 11:50 98.4 F 80 17 199/106 H 97 O2 Del Method 04/11/25 23:00 04/11/25 22:45 Room Air 04/11/25 19:56 Room Air 04/11/25 16:40 Room Air 04/11/25 16:23 Room Air 04/11/25 15:12 Room Air 04/11/25 14:00 Room Air 04/11/25 12:49 04/11/25 11:58 Room Air 04/11/25 11:58 Room Air 04/11/25 11:50 Room Air PG Care Time/CCT Total # of Minutes Spent Total Time Spent with Patient: Total time spent is greater than 50% in coordination of care (as documented) at patient's floor/unit and/or counseling patient: Coding Level of Care Code 78211 IN/OBS CONSULT LVL 4,60M Diagnoses CAD (coronary artery disease) I25.10 Associated angina: unspecified whether angina present Coronary Disease-Associated Artery/Lesion type: [place] artery [place] vs. transplanted heart: [place] heart (1) CAD (coronary artery disease) Associated angina: unspecified whether angina present Coronary Disease- Associated Artery/Lesion type: [place] artery [place] vs. transplanted heart: [place] heart Qualified Code(s): I25.10 - Atherosclerotic heart disease of [place] coronary artery without angina pectoris
[2025-04-12 06:42] LABS: Hematocrit (blood only) 40.3 % (42.0-52.0); Hemoglobin 14.1 g/dL (14.0-18.0); Immature Granulocytes # (auto) 0.02 K/uL (0.01-0.20); Immature Granulocytes % (auto) 0.2 %; Mean Corpuscular Hemoglobin 30.7 pg (25.0-34.0); Mean Corpuscular Volume 87.6 fL (80.0-100.0); Platelet Count 192 K/uL (130-400); RDW Standard Deviation 38.9 fL (36.4-46.3); Red Blood Count 4.60 M/uL (4.70-6.10); White Blood Count 8.02 K/ul (4.8-10.8)
[2025-04-12 07:17] LABS: Anion Gap 6.0 (3-11); Blood Urea Nitrogen 18.0 mg/dl (6-23); Calcium 9.1 mg/dl (8.6-10.3); Carbon Dioxide 26.0 mmol/L (21-32); Chloride 107.0 mmol/L (98-107); Creatinine Clr Calc Pharmacy 110.1 ml/min; Glucose 104.0 mg/dl (70-99(Fasting)); Magnesium 2.1 mg/dl (1.7-2.4); Potassium 4.7 mmol/L (3.5-5.1); Sodium 139.0 mmol/L (136-145)
[2025-04-12] MEDS: ATORVASTATIN 40 MG TAB PO SCH (09:06)
[2025-04-12] MEDS: MAGNESIUM OXIDE 400 MG TAB PO SCH (09:06)
[2025-04-12] MEDS: ASPIRIN 81 MG ECTAB PO SCH (09:06)
[2025-04-12] MEDS: PRASugrel TAB 10 MG TAB PO SCH (09:06)
[2025-04-12] MEDS: VALSARTAN 80 MG TAB PO SCH (09:07)
[2025-04-12] MEDS: METOPROLOL SUCC 25MG EXT REL TAB PO SCH (10:58)
--- NOTE | 2025-04-12 11:10 | Cardiology Progress Note ---
Date of Service April 12, 2025 Assessment & Plan (1) CAD (coronary artery disease): Plan: ACS 90%+ LAD post EVONNE 03/2025. No significant non-culprit disease 2. Sinus bradycardia 3. Paroxysmal SVT/PVCsnotably triggered by periods of ischemia during cath 4. DyslipidemiaLDL 118 5. Family history of premature CADfather fatal [place] 52 6. Suspected sleep apnea 7. Prior tobaccoquit 02/2025, restarted Looks comfortable this morning. Still with some substernal chest pain but reproducible on exam. HS TropI remains normal Overall suspicion for recurrent ACS or stent pathology is low. Do not feel needs repeat catheterization or additional ischemic evaluation. Telemetry overnight has not shown any recurrent SVT. Does still have periods of PVCs with bigeminy. Suspect some of patient's paroxysmal symptoms may be related to SVT, possibly atrial tachycardia, and/or frequent PVCs. Will try to suppress ectopy and recommended continued ambulatory monitoring. Will trial of low-dose Toprol-XL 12.5 mg daily. Okay with asymptomatic resting heart rate in the 40s. Continue DAPT with aspirin, prasugrel Agree with increased valsartan and statin Consider PPI Encouraged smoking cessation. From a cardiac standpoint okay with discharge today. Follow-up with me in 2 weeks. Admission and Anticipated Discharge Date Admission Date: April 11, 2025 Subjective Still with mild substernal chest pain this morning. Pain reproducible if he pushes on his chest. Denies more palpitations or lightheadedness. Telemetry reviewedprimarily sinus bradycardia. Periods of bigeminyduring these periods reported heart rates down to 20s but asymptomatic. Review of Systems Review of Systems: All systems reviewed & are unremarkable except as noted in HPI & below Physical Exam Physical Exam: General: Comfortable HEENT: Sclerae anicteric Lungs: Clear to auscultation bilaterally Cardiac: Bradycardic, regular, no murmurs Vascular: 2+ radial bilaterally Abdomen: Soft, nontender Extremities: Well perfused, no peripheral edema Neuro: Nonfocal Psych: Alert orient x3, normal affect and mood Results & Data Vital Signs (Past 12 Hours) Vital Signs Temp Pulse Resp BP Pulse Ox O2 Del Method 04/12/25 07:45 98.2 F 59 L 18 117/72 97 Room Air 04/12/25 02:46 98.1 F 76 18 134/74 91 Room Air PG Care Time/CCT Total # of Minutes Spent Total Time Spent with Patient: Total time spent is greater than 50% in coordination of care (as documented) at patient's floor/unit and/or counseling patient: Coding Level of Care Code 93317 SUB INP/OBS CARE 2/35MIN Diagnoses CAD (coronary artery disease) I25.10 Associated angina: unspecified whether angina present Coronary Disease-Associated Artery/Lesion type: [place] artery [place] vs. transplanted heart: [place] heart (1) CAD (coronary artery disease) Associated angina: unspecified whether angina present Coronary Disease- Associated Artery/Lesion type: [place] artery [place] vs. transplanted heart: [place] heart Qualified Code(s): I25.10 - Atherosclerotic heart disease of [place] coronary artery without angina pectoris
[2025-04-12 11:17] VITALS: BP 120/74; RESP 19; TEMP 98.1; O2SAT 99
--- NOTE | 2025-04-12 16:04 | Discharge Summary ---
Discharge Summary Date of Service April 12, 2025 Principal Dx & Hospital Course #1 = Principal Diagnosis (1) Chest pain: (2) CAD (coronary artery disease): (3) SVT (supraventricular tachycardia): (4) Hypertension: Plan This patient is a 40-year-old male with history of severe CAD s/p recent LAD stent, paroxysmal SVT, and current smoker, here with recurrent episodes of SVT versus atrial tachycardia along with angina and left arm heaviness. BPs quite elevated on arrival and improved with nitroglycerin and morphine. #Chest pain-serial troponin was negative x 3, limited echo without wall motion abnormalities. Pain seems more musculoskeletal or related to SVT. Appreciate cardiology consultation. Pain was resolved by the time of discharge - Continue BP control, add metoprolol for SVT - Continue PPI #CAD s/p recent LAD stent - continue home DAPT - continue statin - Adding Toprol-XL 12.5 mg p.o. once daily #Atrial tachycardia versus SVT-having recurrent episodes of palpitations, rapid heart rate, diaphoresis. Heart rate was in the 130s on arrival this admission and then dropped down to the 50s and sinus bradycardia spontaneously. On telemetry here, also had sinus bradycardia with bigeminy and frequent PVCs. Worse while sleeping overnight. Likely undiagnosed JORGE - Start Toprol-XL 12.5 mg p.o. once daily - Continue outpatient ambulatory gambling monitor - Follow-up with cardiology as an outpatient 2 weeks -Recommend discontinuing all caffeine products and continue to work on smoking cessation - Repleted potassium to keep optimal at 4.0 - Continue magnesium 400 Mg p.o. once daily #HTN-BPs quite elevated on arrival, improved with nitroglycerin and morphine - continue valsartan at recently increased dose of 160 mg daily - Adding Toprol-XL - Follow as an outpatient, consider adding amlodipine in future if needed #Opioid dependence - takes buprenorphine at home - Continue buprenorphine VTE ppx: lovenox SQ Disposition-improved, stable for discharge to home Notes For Next Care Provider Follow-up ambulatory cardiac event monitor Medication Changes From Visit Added Toprol XL 12.5 mg p.o. once daily Admission HPI Per Admitting Provider Pt is a 40 yo male with a past medical hx of recent LAD stent and LAD thrombus noted on 03/29, HTN, hx bradycardia, and hx SVT and opioid dependence on buprenorphine who presents to the hospital on 04/11 for recurrent episodes of chest pain with recent stent. Pt states that symptoms before his cath on the 03/29 were episodes of chest pain with associated SOB and sometimes feeling faint. He states that episodes would come and go and were not exertional in nature. He states that since his cath he has started to have episodes again of chest pain with SOB, diaphoresis and feeling faint along with feeling tachycardic with palpitations. He states he at times has SOB and diaphoresis with conversations. He states that yesterday around 1pm he started to feel shaky, diaphoretic and with sharp substernal chest pain and feeling like his heart was racing. He states he was on his way home fro m work and started to feel faint as well. He states once he got home he went to bed and felt entirely exhausted and went to bed and slept from 3pm until 10am this morning. He also notes poor appetite since his cath. He states all he ate last night for dinner was some oranges before going back to sleep. He states he "feels like his artery is blocked up again" as he feels exactly as he felt prior to his cath. He was given morphine and nitro and states he is still having 5/10 chest pain. He states he did do cocaine 10 years ago but not since. Denies drug use otherwise. He smokes 1/2 ppd (was smoking 1 ppd prior to his cath). Family hx; his dad at age 52 of an [place]. His mom had 3 stents with the first one in her 50s. Discharge Exam Constitutional WD/WN, vitals as above Neck trachea midline, no thyromegaly Respiratory normal respiratory effort, lungs clear to auscultation Cardiovascular RRR, no murmur, no edema Chest (Breasts) Chest: normal inspection of chest Gastrointestinal (Abdomen) normal bowel sounds, soft, nontender, no hepatosplenomegaly Musculoskeletal Extremities: extremities normal to inspection; no cyanosis and no clubbing Skin no rashes, warm and dry Neurologic moves all extremities and awake; no focal motor deficits Psychiatric A+Ox3, euthymic affect Lymphatic no lymphedema Discharge Plan Discharge Items Patient Disposition: Home - Self-Care Reason For Visit: CHEST PAIN, RECENT CATH Discharge Diagnosis: Atrial tachycardia Chest pain Condition on Discharge: Good Activity: Resume your previous activity Non-emergency contact: Primary Care Provider and 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 You were started on metoprolol to help suppress the fast heart rate (tachycardia). You had multiple blood tests and EKGs that showed that you did not have a heart attack. Our nurse navigator is trying to get your sleep study moved up to a sooner date to look for sleep apnea. You will be contacted about this if a sooner date can be arranged. Continue the heart monitor as your primary care provider ordered for you. Please continue to quit smoking and avoid caffeine intake. Follow-up with the fashion design professor in 2 weeks. It was a pleasure taking care of you! If you have any questions about your care before your hospital follow-up visit with your primary care provider, please call [phone] and ask to be transferred to the [facility] Medicine office. Sincerely, Ranjana Brito M.D. Pending Studies at Discharge: No Stand-Alone Forms: My [facility], Smoking Cessation Medications and DC Order Prescriptions: New metoprolol succinate 25 mg Tablet Extended Release 24 Hr 12.5 mg PO QAM Qty: 15 0RF Continued atorvastatin 80 mg tablet 80 mg PO DAILY Qty: 90 3RF valsartan 160 mg tablet 160 mg PO DAILY Qty: 30 2RF multivitamin [One-A-Day Essential] Tablet 1 tab PO DAILY magnesium oxide 500 mg magnesium tablet 500 mg PO DAILY buprenorphine HCl 8 mg Tablet, Sublingual 8 mg SUBLINGUAL DAILY aspirin 81 mg Tablet,Delayed Release (Dr/Ec) 81 mg PO QAM 30 Days Qty: 30 0RF prasugrel HCl 10 mg Tablet 10 mg PO QAM 30 Days Qty: 30 0RF Discharge Orders: Discharge Order (Routine); Ordered 04/12/25 Ordered By: Ranjana Brito Admission Data Admit Date/Time: 04/11/25 14:41 Attending Provider: Ranjana Brito Admit Provider: Ranjana Brito Primary Care Provider: Gladys Matthews Other Providers: Ranjana Brito; Michael Levin Hospital Stay Data Consultations 04/11/25 13:49 ED Decision to Admit Stat 04/11/25 16:39 Consult Cardiology Routine Diagnostic Imagining Performed Echocardiogram Pending Results Patient Have Any Pending Studies at Discharge: No Discharge Instructions Given to Patient (Per Discharging Provider) You were admitted with chest pain and a fast heart rate likely due to atrial tachycardia or SVT. You were started on metoprolol to help suppress the fast heart rate (tachycardia). You had multiple blood tests and EKGs that showed that you did not have a heart attack. Our nurse navigator is trying to get your sleep study moved up to a sooner date to look for sleep apnea. You will be contacted about this if a sooner date can be arranged. Continue the heart monitor as your primary care provider ordered for you. Please continue to quit smoking and avoid caffeine intake. Follow-up with the fashion design professor in 2 weeks. It was a pleasure taking care of you! If you have any questions about your care before your hospital follow-up visit with your primary care provider, please call [phone] and ask to be transferred to the [facility] Medicine office. Sincerely, Ranjana Brito M.D. Total Time Total Time Spent Total Time Spent (In Minutes): 35 minutes Total Time Includes: Examination of the Patient, Discharge Planning, Medication Reconciliation and Communication With Other Providers (Cardiology) Coding Level of Care Code 99588 INP/OBS DISCH >30 MIN Diagnoses Chest pain R07.9 Chest pain type: unspecified CAD (coronary artery disease) I25.10 Associated angina: unspecified whether angina present Coronary Disease-Associated Artery/Lesion type: rosebud artery [place] vs. transplanted heart: rosebud heart SVT (supraventricular tachycardia) I47.10 Hypertension I10
[2025-04-12 16:37] VITALS: PULSE 51
== END 2025-04-12 16:49 | disposition home or self-care (01) ==
LOC: ED 11:45 → 2S 11:45